=== PATIENT | female | born 1955 | race Caucasian/White ===

== ENCOUNTER → 2016-08-14 | Outpatient (CLI) | payer BC ==
[~2016-08-14] MED LIST: CALC500C70 PO; CHOL100010 PO; DENOINJ IM; DOCU-94 PO; DOCU100C31 PO; GADAVIST IV PRN; GLUC1CAP33 PO; GLYCERIN PR; MAGN250T3 PO; MULT-506 PO; OMEP20TA14 PO; ONDA4TAB46 PO; OXYC-57 PO; PROB1TAB16 PO; SENNTAB23 PO; [UNRECOGNIZED DRUG - CODE] PO
--- NOTE | 2016-08-14 14:55 | DIAGNOSTIC IMAGING REPORT ---
MRI OF THE BRAIN COMBO CLINICAL HISTORY: Lung cancer. History of brain metastases. COMPARISON STUDY: Prior MRI examinations of the brain, most recently dated 04/09/2016. TECHNIQUE: MRI of the brain was performed utilizing various T1 and T2-weighted sequences in the axial, sagittal, and coronal planes. Contrast-enhanced sequences were acquired following the administration of 9 cc of Gadavist. FINDINGS: Brain parenchyma: Again seen is left parietal encephalomalacia consistent with previous resection. There is no hemorrhage or mass effect. There is no restricted diffusion to suggest acute ischemia. No enhancing mass lesion is identified on the postcontrast images. Perdue-white matter differentiation is preserved. There is mild subcortical and periventricular microangiopathic change. No extra-axial fluid collection is seen. The cerebellar tonsils are normal in configuration. Ventricles, sulci, and cisterns: Normal in configuration. Pituitary and sella: Partially empty sella is incidentally noted. Intracranial vasculature: Normal flow voids are maintained at the skull base. Orbits: The bony orbits are grossly intact. Orbital contents are normal in appearance. Sinuses and mastoids: There are bilateral mastoid effusions. The paranasal sinuses are clear. Calvarium: There are changes from left parietal craniotomy. No destructive calvarial lesion is seen. Fatty replacement of the clivus may be treatment related. Cervical cord: Partially visualized cervical spinal cord is normal in morphology and signal intensity. IMPRESSION: 1. There is no evidence of intracranial metastatic disease in today's examination and there has been no significant change from 04/09/2016. 2. Postoperative changes in the left parietal region are similar to previous. 3. Bilateral mastoid effusions. Electronically signed by: Pranav Gaffney M.D. 08/14/2016 2:54 PM Dictated Date/Time: 08/14/2016 2:50 PM
== END | disposition home or self-care (01) ==
LOC: C.MRI 13:49
PROVIDERS: ATTEND Internal Medicine Hematology & Oncology
DX: C34.32 Malignant neoplasm of lower lobe, left bronchus or lung (principal)

== ENCOUNTER → 2016-08-19 | Outpatient (CLI) | payer BC ==
[~2016-08-19] MED LIST changes: -GADAVIST IV PRN
--- NOTE | 2016-08-19 12:12 | DIAGNOSTIC IMAGING REPORT ---
PET/CT SKULL-THIGH CLINICAL HISTORY: LUNG CA COMPARISON STUDY: 03/09/2016 FINDINGS: The patient was injected with 15.1 mCi of F 18 labeled FDG. Following the standard induction phase, PET/CT scanning was performed from the skull base the upper thigh region. Activity within neck is felt to be physiologic. Activity within the thorax is felt to be physiologic. There is elevation of the left hemidiaphragm. Postsurgical changes are present with evidence of a prior left lower lobectomy. There is left paramediastinal consolidation with air bronchograms, likely secondary to post radiation change. There are stable water attenuation hepatic lesions, consistent with cysts. There are no FDG avid hepatic masses. There is physiologic urinary tract and bowel activity. There is no pathologic jeremie activity within the abdomen or pelvis. There are few scattered sclerotic lesions, most notably within the sacrum and lower cervical spine. These remain unchanged in size. These are not FDG avid. IMPRESSION: 1. Stable findings. Presumed left lung post radiation changes 2. Stable sclerotic skeletal lesions 3. No evidence of FDG avid metastatic disease. Electronically signed by: Mathew Ward M.D. 08/19/2016 12:10 PM Dictated Date/Time: 08/19/2016 12:02 PM
== END | disposition home or self-care (01) ==
LOC: C.PET 07:55
PROVIDERS: ATTEND Family Medicine
DX: C34.32 Malignant neoplasm of lower lobe, left bronchus or lung (principal); M89.9 Disorder of bone, unspecified

== ENCOUNTER → 2016-08-29 | Outpatient (CLI) | payer BC ==
[2016-08-29 08:53] LABS: CHOLESTEROL/HDL RATIO 4.3; THYROID STIMULATING HORMONE 1.79 uIu/ml (0.300-4.500)
== END | disposition home or self-care (01) ==
LOC: C.LAB 07:20
PROVIDERS: ATTEND Family Medicine
DX: E55.9 Vitamin D deficiency, unspecified (principal); E78.2 Mixed hyperlipidemia

== ENCOUNTER → 2016-10-21 | Outpatient (CLI) | payer BC | END | disposition home or self-care (01) | LOC: C.PATHSPEC 17:20 | PROVIDERS: ATTEND Surgery | DX: K62.9 Disease of anus and rectum, unspecified (principal) ==

== ENCOUNTER → 2016-11-09 | Outpatient (CLI) | payer BC ==
[~2016-11-09] MED LIST changes: -GLUC1CAP33 PO; -MAGN250T3 PO; -OMEP20TA14 PO
== END | disposition home or self-care (01) ==
LOC: C.CPL 18:09
PROVIDERS: ATTEND Surgery
DX: K64.4 Residual hemorrhoidal skin tags (principal); K64.8 Other hemorrhoids

== ENCOUNTER 2016-11-19 07:37 | Observation (INO) | payer BC ==
[2016-11-05 15:24] VITALS: BMI 31.0
[~2016-11-19] VITALS: Ht 160 cm; Wt 81.8 kg
[2016-11-19] VITALS (11 sets, daily range): BP systolic 104–135; BP diastolic 56–78; PULSE 71–88; TEMP 36.5–36.9; O2SAT 92–99; Ht 160 cm; Wt 81.8 kg
[~2016-11-19 07:37] MED LIST changes: -DOCU-94 PO; -GLYCERIN PR; +LACTATED RINGER'S 1000ML 1,000 ML IV SCH; -OXYC-57 PO
[2016-11-19] MEDS ORDERED: GLYCERIN PR (08:34)
--- NOTE | 2016-11-19 08:36 | History & Physical Bridge Note ---
H&P Re-Evaluation Bridge Note: I have examined the patient, reviewed the History & Physical and in the interval since the performance of the History & Physical I have noted the following changes of clinical significance: No changes paperwork from office missing new consent formed signed
--- NOTE | 2016-11-19 08:45 | Discharge Instructions ---
Discharge Instructions Date of Service November 19, 2016. Visit Reason for Visit: Prolapsed Hemorrhoids Discharge Discharge Diagnosis / Problem: hemorrhoids Discharge Goals Goal(s): Decrease discomfort Activity Recommendations Activity Limitations: as noted below Shower/Bathe: tomorrow Anesthesia . Post Anesthesia Instructions: If you have had General Anesthesia or IV Sedation: * Do not drive today. * Resume driving when surgeon permits. * Do not make important decisions or sign legal documents today. * Call surgeon for: 1. Temperature elevations greater than 101 degrees F. 2. Uncontrollable pain. 3. Excessive bleeding. 4. Persistent nausea and vomiting. 5. Medication intolerance (nausea, vomiting or rash). * For nausea and vomiting use only clear liquids such as: tea, soda, bouillon until nausea subsides, then gradually increase diet as tolerated. * If you have any concerns or questions, call your surgeon's office. If physician is unavailable and it is an emergency, call 911 or go to the nearest emergency room. . Instructions / Follow-Up Instructions / Follow-Up Dr. Karimi in 1 week, call [phone] for any questions or if you need to schedule an appt Continue sitz baths 3-4 times daily Diet Recommendations Recommended Home Diet: no limitations Pending Studies Studies pending at discharge: no Medical Emergencies . Who to Call and When: Medical Emergencies: If at any time you feel your situation is an emergency, please call 911 immediately. . Non-Emergent Contact Non-Emergency issues call your: Surgeon Call Non-Emergent contact if: you have a fever, temperature is above 101.5, your pain is not controlled . . "Provider Documentation" section prepared by Michelet Burks. .
[2016-11-19] MEDS ORDERED: DOCU-94 PO (08:47)
[2016-11-19] MEDS ORDERED: OXYC-57 PO (08:47)
[2016-11-19] MEDS ORDERED: MIDAZOLAM HCL 1 MG/ML 2ML VIAL ONE (08:52)
[2016-11-19] MEDS ORDERED: GELATIN SPONGE SZ 100 ONE (08:53)
[2016-11-19] MEDS ORDERED: BUPIVACAINE/EPINEPHRINE 0.5% MPF 1:200,000 30 ML VIAL ONE (08:53)
[2016-11-19] MEDS ORDERED: FENTANYL CITRATE INJ 50 MCG/1 ML 2 ML VIAL ONE (08:53)
[2016-11-19] MEDS ORDERED: ATROPINE SULFATE 0.1 MG/ML 5ML SYR IV PRN (09:30)
[2016-11-19] MEDS ORDERED: HYDROmorphone INJ 1 MG/ML SYR IV PRN (09:30)
[2016-11-19] MEDS ORDERED: ONDANSETRON INJ 2 MG/ML 2 ML VIAL IV PRN (09:30)
[2016-11-19] MEDS ORDERED: MEPERIDINE HCL 25 MG/ML CARP IV PRN (09:30)
[2016-11-19] MEDS ORDERED: EpHEDrine SULFATE INJ 50 MG/ML AMP IV PRN (09:30)
[2016-11-19] MEDS ORDERED: FENTANYL CITRATE INJ 50 MCG/1 ML 2 ML VIAL IV PRN (09:30)
[2016-11-19] MEDS ORDERED: LABETALOL HCL IV 5 MG/ML 20ML IV PRN (09:30)
[2016-11-19] MEDS ORDERED: GLYCOPYRROLATE INJ 0.2 MG/ML VIAL ONE (09:47)
[2016-11-19] MEDS ORDERED: NEOSTIGMINE METHYLSULFATE 5 MG/5 ML SYR ONE (09:47)
[2016-11-19] MEDS ORDERED: LIDOCAINE HCL 2% 2 ML VIAL (20MG/ML) ONE (09:47)
[2016-11-19] MEDS ORDERED: DEXAMETHASONE SOD INJ 4 MG/ML VIAL ONE (09:47)
[2016-11-19] MEDS ORDERED: ROCURONIUM BROMIDE 10 MG/ML 5 ML VIAL ONE (09:47)
[2016-11-19] MEDS ORDERED: PROPOFOL IV EMULSION 10 MG/ML 20 ML VIAL IV ONE (09:47)
[2016-11-19] MEDS ORDERED: ONDANSETRON INJ 2 MG/ML 2 ML VIAL ONE (09:47)
[2016-11-19] MEDS ORDERED: PHENYLEPHRINE HCL INJ 10 MG/ML VIAL ONE (09:50)
[2016-11-19] MEDS ORDERED: CEFOXITIN SOD 1 GM VIAL ONE (09:52)
[2016-11-19] MEDS ORDERED: METOCLOPRAMIDE HCL INJ 5 MG/ML 2 ML VIAL ONE (09:54)
--- NOTE | 2016-11-19 10:11 | [facility] Post Operative Brief Note ---
Immediate Operative Summary Operative Date November 19, 2016. Pre-Operative Diagnosis Prolapsed hemorrhoid Post-Operative Diagnosis Prolapsed hemorrhoid Procedure(s) Performed Excision of 2 Point Hemorrhoids right, Exam Under Anesthesia, Rubberband Ligation Left Internal Hemmorrhoid Surgeon Dr. Lenny [facility] Coordinator Surgeon(s) Michelet Burks PA-C Estimated Blood Loss 10ml Findings prolapse ant right and and post right good sphincter tone Specimens A) right ant and post
[2016-11-19] MEDS ORDERED: MoRPHine SULFATE 2 MG/ML CARP IV PRN (10:15)
[2016-11-19] MEDS ORDERED: MEPERIDINE HCL 25 MG/ML CARP ONE (10:29)
[2016-11-19] MEDS ORDERED: LABETALOL HCL IV 5 MG/ML 20ML IV ONE (10:35)
--- NOTE | 2016-11-19 11:03 | Anesthesiology Progress Note ---
Anesthesia Post Op Note Date & Time November 19, 2016 at 11:04 Vital Signs Pain Intensity: 4 Vital Signs Past 12 Hours Date Time Temp Pulse Resp B/P Pulse Ox O2 Delivery O2 Flow Rate FiO2 11/19/16 10:57 122/ 11/19/16 10:52 85 16 11/19/16 10:52 86 16 93 11/19/16 10:51 130/75 11/19/16 10:50 80 15 93 11/19/16 10:50 80 15 11/19/16 10:46 138/60 11/19/16 10:45 81 20 11/19/16 10:45 79 20 90 11/19/16 10:43 141/68 11/19/16 10:40 87 23 94 11/19/16 10:40 87 23 11/19/16 10:36 144/99 11/19/16 10:35 85 19 11/19/16 10:35 84 19 92 11/19/16 10:34 147/92 11/19/16 10:33 88 26 11/19/16 10:33 88 26 93 11/19/16 10:32 158/107 11/19/16 10:28 86 19 11/19/16 10:28 87 19 99 11/19/16 10:27 153/98 11/19/16 10:23 77 16 11/19/16 10:23 77 16 99 11/19/16 10:22 157/92 11/19/16 10:18 82 15 98 11/19/16 10:18 82 15 11/19/16 10:17 169/96 11/19/16 10:14 158/97 11/19/16 10:13 36.2 78 16 158/97 100 Mask 10 11/19/16 10:13 77 11/19/16 10:13 77 99 11/19/16 07:53 36.7 71 20 104/56 95 Room Air Notes Mental Status: alert / awake / arousable, participated in evaluation Pt Amnestic to Procedure: Yes Nausea / Vomiting: adequately controlled Pain: adequately controlled Airway Patency, RR, SpO2: stable & adequate BP & HR: stable & adequate Hydration State: stable & adequate Anesthetic Complications: no major complications apparent
--- NOTE | 2016-11-19 11:41 | OPERATIVE REPORT ---
DATE OF OPERATION: 11/19/2016 PREOPERATIVE DIAGNOSIS: Prolapsed hemorrhoids. POSTOPERATIVE DIAGNOSES: Prolapsed hemorrhoids, right anterior and posterior group and left group. PROCEDURES: Exam under anesthesia, excision right anterior and right posterior group, rubber band ligation of the left internal hemorrhoids. SURGEON: Dr. Karimi. STANDARDS ANALYST: Rosendo Burks PA-C. OPERATION AND FINDINGS: SUMMARY: The patient was brought into the operating room theater. The area was shaved and the buttocks were spread over with adhesive tape and prepped with Betadine solution. Systemic antibiotics was given. At this point, we inspected the patient had an obvious prolapse in the right side which she had almost a chronic polyp that we had biopsied in the office, was about 2 cm at most, which showed chronic inflammation. At this point, we progressively dilated the sphincter to 2 finger, the sphincter tone was good and then placed the scope. We visualized the canal after manually palpating there were no lesions appreciated. What we could see is the right anterior group significant prolapsing with significant amount of tissue. At this point, I placed a 2-0 chromic suture above the dentate line, scored circumferentially around the tissue that we had elevated with Allis clamps all the way to the skin edges. We then dissected out the plexus to the point that we avoided sphincters. We placed a Charley clamp underneath the tissue, excised the tissue and using the same chromic we ran it backwards and forward to achieve hemostasis in the tract that we had excised. Once this had been completed, we then did similarly in the posterior group in a similar fashion. Then our attention was turned to the internal group after we felt that the sphincter and appeared to be a little bit tight at this point compared to when we first went in, therefore I rubber band ligated the hemorrhoid tissue on the left hand side which was not as prominent to grasp it with an Allis clamp and rubber band ligated above the dentate line. At this point, we placed the packing of Gelfoam wrapped in Vaseline gauze into the canal and dressing was applied. The procedure was tolerated well by the patient. Estimated blood loss approximately 15 mL. The patient was taken to recovery room in good condition. I attest to the content of the Intraoperative Record and any orders documented therein. Any exceptions are noted below. AMARILIS
[2016-11-19] MEDS: OXYCODONE/ACETAMINOPHEN 5-325 TAB PO PRN ×3 (11:42→19:09)
[2016-11-19] MEDS ORDERED: NURSING VERBAL MED ORDER ONE (12:02)
[2016-11-19] MEDS: ONDANSETRON INJ 2 MG/ML 2 ML VIAL IV PRN ×2 (12:08→17:43)
[2016-11-19] MEDS ORDERED: IV FLUIDS COMPLETED PRN ×2 (12:45→16:30)
[2016-11-19] MEDS: LACTATED RINGER'S 1000ML 1,000 ML IV SCH ×2 (13:58→19:48)
[2016-11-19] MEDS: BOOST VANILLA PO SCH ×2 (17:02)
[2016-11-20 03:25] VITALS: BP 103/65; PULSE 72; TEMP 36.4; O2SAT 92
[2016-11-20] MEDS: OXYCODONE/ACETAMINOPHEN 5-325 TAB PO PRN ×3 (03:55→13:57)
[2016-11-20] MEDS: ONDANSETRON INJ 2 MG/ML 2 ML VIAL IV PRN ×2 (03:58→10:14)
[2016-11-20] MEDS: LACTATED RINGER'S 1000ML 1,000 ML IV SCH (05:32)
[2016-11-20 07:05] VITALS: BP 104/70; PULSE 61; TEMP 36.5; O2SAT 97
--- NOTE | 2016-11-20 07:44 | SURGERY PROGRESS NOTE ---
DATE: 11/20/2016 DATE: 11/20/2016. Carmelita is resting comfortably this morning. Her pain is pretty much managed. She is alert, coherent. She has voided fine. Her last vitals showed a temperature of 36.4, pulse 72, respirations 16, blood pressure 103/65, O2 sats 95 on room air. The pathology and the operative findings were discussed with the patient. The operative area does not show any ecchymosis, minimal drainage. At this point we will start Sitz bath and the patient could probably be discharged later today. Instructions were given not to lift anything heavier than 10 pounds, maintains stools soft and she definitely needs Sitz bath about 3 or 4 times a day. We will see her back in the office next week.
--- NOTE | 2016-11-20 08:25 | Anesthesiology Progress Note ---
Anesthesia Post Op Note Date & Time November 20, 2016 at 08:25 Vital Signs Pain Intensity: 7.0 Vital Signs Past 12 Hours Date Time Temp Pulse Resp B/P Pulse Ox O2 Delivery O2 Flow Rate FiO2 11/20/16 07:05 36.5 61 16 104/70 97 Room Air 11/20/16 03:25 36.4 72 16 103/65 92 Room Air 11/19/16 23:40 Room Air 11/19/16 23:25 36.6 75 16 109/68 93 Room Air Notes Mental Status: alert / awake / arousable, participated in evaluation Pt Amnestic to Procedure: Yes Nausea / Vomiting: adequately controlled, see Notes Pain: adequately controlled Airway Patency, RR, SpO2: stable & adequate BP & HR: stable & adequate Hydration State: stable & adequate Anesthetic Complications: no major complications apparent PONV last night, emesis x 1, improved with zofran, no N/V currently.
[2016-11-20] MEDS: BOOST VANILLA PO SCH ×4 (09:25→13:57)
[2016-11-20 13:38] VITALS: BP 104/70; PULSE 61; TEMP 36.5; O2SAT 97
--- NOTE | 2016-11-21 05:55 | DISCHARGE SUMMARY ---
PRIMARY DISCHARGE DIAGNOSIS: Prolapsed hemorrhoids. SECONDARY DISCHARGE DIAGNOSIS: History of lung cancer. PROCEDURE PERFORMED: Exam under anesthesia, excision of right anterior and right posterior group and rubber band ligation of left internal hemorrhoids. HOSPITAL COURSE: The patient is a 61-year-old female brought in through same day to the operating room for hemorrhoidectomy. The procedure was well tolerated. She was transferred to the surgical floor for overnight observation given her previous medical history. She did well and was tolerating diet and oral analgesics on postoperative day 1. Packing was removed. She was started on Sitz baths. She was stable for discharge. DISCHARGE INSTRUCTIONS: Discharge home. Follow up with Dr. Karimi in 1 week. DISCHARGE MEDICATIONS: Colace 100 mg p.o. b.i.d. and Percocet 1-2 tablets every 4 hours as needed. Continue home medications including Os-Jd 2 tablets daily, vitamin D 1000 units daily, Xalkori 200 mg b.i.d. Xgeva 120 mg monthly, daily multivitamin, Zofran 4 mg as needed, daily probiotic, Sennosides 4 tablets as needed and glycerin suppository which should be held.
== END 2016-11-20 14:05 | disposition home or self-care (01) ==
LOC: ENRESERVDT → ENRESERVTM → C.ACU 07:37 → C.MSW 11:55
PROVIDERS: ADMIT Surgery; ATTEND Surgery
DX: K64.8 Other hemorrhoids (principal); H91.90 Unspecified hearing loss, unspecified ear; E78.5 Hyperlipidemia, unspecified; E55.9 Vitamin D deficiency, unspecified; Z80.0 Family history of malignant neoplasm of digestive organs; Z82.3 Family history of stroke; Z83.3 Family history of diabetes mellitus; Z82.49 Family history of ischemic heart disease and other diseases of the circulatory system; Z87.891 Personal history of nicotine dependence

== ENCOUNTER → 2017-03-25 | Outpatient (CLI) | payer BC ==
[~2017-03-25] MED LIST changes: +DOCU-94 PO; +GADAVIST IV PRN; -LACTATED RINGER'S 1000ML 1,000 ML IV SCH; +OPTIRAY 320 IV PRN; +OXYC-57 PO; -SENNTAB23 PO
--- NOTE | 2017-03-25 07:59 | DIAGNOSTIC IMAGING REPORT ---
BRAIN COMBO HISTORY: 61 years-old Female C34.32 follow-up study in a patient with history of metastatic lung cancer. History of skeletal metastases. COMPARISON: PET/CT 08/19/2016, brain MR 08/14/2016 TECHNIQUE: Multiplanar multisequence MRI of the brain was obtained both with and without the use of 8 mL Gadavist. FINDINGS: There is no restricted diffusion to suggest acute ischemia. Midline structures including the corpus callosum, brainstem, optic chiasm and pineal gland are unremarkable in the sagittal T1 sequence. No cerebellar tonsillar herniation. The sella is partially empty. Mild uncovertebral spurring is noted within the imaged upper cervical spine. Postsurgical changes from prior left parietal craniotomy are again noted with encephalomalacia and gliosis in the adjacent left parietal lobe. There is mild cerebral atrophy with scattered areas of T2/FLAIR prolongation within the subcortical and periventricular white matter of the cerebral hemispheres bilaterally suggesting chronic microvascular ischemic changes. These findings appear unchanged from comparison. There is no acute intracranial hemorrhage, midline shift, abnormal extra-axial collections, hydrocephalus or intracranial mass. No abnormal enhancement identified. The major flow voids at the skull base are patent. There are [id number] bilateral mastoid effusions. Mild ethmoid and sphenoid sinus disease. IMPRESSION: 1. No acute intracranial abnormality identified. No abnormal enhancement or focal mass lesion identified to suggest metastasis. 2. Prior left parietal craniotomy with encephalomalacia and gliosis of the left parietal lobe, unchanged. 3. Mild atrophy with background chronic microvascular ischemic changes. 4. Bilateral mastoid effusions with mild ethmoid and sphenoid sinus disease. The above report was generated using voice recognition software. It may contain grammatical, syntax or spelling errors. Electronically signed by: Rony Mcpherson M.D. 03/25/2017 7:58 AM Dictated Date/Time: 03/25/2017 7:50 AM
--- NOTE | 2017-03-25 08:31 | DIAGNOSTIC IMAGING REPORT ---
ABD/PELVIS IV AND ORAL CONT CLINICAL HISTORY: 61 years-old Female presenting with C34.32, lung cancer, brain metastases. TECHNIQUE: Multidetector CT of the abdomen and pelvis was performed after the administration of oral and intravenous contrast. IV contrast: 118 mL of Optiray 320. A dose lowering technique was used consistent with the principles of ALARA (as low as reasonably achievable). COMPARISON: 11/09/2012. CT DOSE (mGy.cm): The estimated cumulative dose is 1218.38. FINDINGS: Paint Stripper topogram: Cholecystectomy clips postsurgical changes of the left lung. Lung bases: Left hemidiaphragm elevation. Right lung bases clear. Normal heart size. No pericardial or pleural effusion. Liver: Normal morphology. Multiple well-defined hypodensities in the liver, stable to slightly increased in size from prior exam. Some of these are too small to characterize, however, most are well-defined and nonenhancing, consistent with hepatic cysts or hamartomas. No convincing evidence of a suspicious lesion. Patent hepatic vasculature. Biliary: No intrahepatic or extrahepatic biliary ductal dilatation. Gallbladder surgically absent. Pancreas: Normal. Spleen: The spleen is incompletely included within the [id number] secondary to elevation of the left hemidiaphragm. Adrenal glands: Normal. Kidneys and ureters: Few tiny hypodensities in the right kidney likely cysts. No hydronephrosis. Ureters normal. Bladder: Incompletely evaluated secondary to underdistention. Pelvic organs: Uterus and ovaries normal. Gas noted in the vagina. Bowel: Diverticulosis of the descending and sigmoid colon. Mild wall thickening in the sigmoid colon likely indicates chronic diverticular disease. No pericolonic inflammatory change. The splenic flexure is incompletely included within the [id number] secondary to elevation of the left hemidiaphragm. Normal appendix. No bowel obstruction. Peritoneal cavity: No free fluid or intraperitoneal gas. Vasculature: Aorta and IVC patent and normal in caliber. Lymph nodes: Few prominent lymph nodes in the iliac axis, which are subcentimeter in the short axis and were present on prior exam. Another prominent lymph node in the portacaval region was also present on prior exam and is subcentimeter in the short axis. No pathologically enlarged lymph nodes in the abdomen or pelvis by CT size criteria. Abdominal wall: Small fat-containing umbilical hernia. Musculoskeletal: Degenerative changes of the spine. Sclerotic lesion in the sacrum (series 6 image 288), new from prior exam additional sclerotic lesion in the left lateral 10th rib (series 6 image 81). IMPRESSION: 1. Findings suspicious for osseous metastatic disease with new sclerotic lesions in the sacrum and left lateral 10th rib. No other evidence of metastatic disease in the abdomen or pelvis. No pathologically enlarged lymph nodes. 2. Chronic diverticular disease of the sigmoid colon. Electronically signed by: Tacos Jean-Baptiste M.D. 03/25/2017 8:30 AM Dictated Date/Time: 03/25/2017 8:20 AM
--- NOTE | 2017-03-25 08:49 | DIAGNOSTIC IMAGING REPORT ---
CT OF THE CHEST WITH IV CONTRAST CLINICAL HISTORY: C34.32 LUNG CARCINOMA. BRAIN METASTASIS. COMPARISON STUDY: 04-10 TECHNIQUE: Following the IV administration of 118 mL of Optiray-320, CT of the thorax was performed from the thoracic inlet to the lung bases. Images are reviewed in the axial, sagittal, and coronal planes. IV contrast was administered without complication. A dose lowering technique was utilized adhering to the principles of ALARA. CT DOSE: 1218.38 mGycm FINDINGS: Thyroid: Imaged portions of the thyroid gland are normal in appearance. Thoracic aorta: The thoracic aorta is normal in course and caliber, noting standard 3-vessel arch anatomy. No aneurysm or dissection is seen. Pulmonary vasculature: The pulmonary trunk is normal in caliber. There are no central filling defects identified to suggest pulmonary embolus. Note that this examination was not protocoled for the evaluation of pulmonary emboli. HEART: There is trace pericardial fluid Lungs and pleural spaces: There are postsurgical changes of a left upper lobectomy. There are left paramediastinal fibrotic changes consistent with post radiation change. This remains unchanged from the preceding study. There is no acute parenchymal consolidation. There are no pleural effusions. Mediastinum: There is no mediastinal lymphadenopathy. Lila: There is no evidence of pathologic adenopathy Axilla: Clear. Upper abdomen: There are multiple hepatic hypodensities which remain similar and likely represent cysts. Skeletal structures: There is a C7 sclerotic lesion, unchanged from the PET/CT scan dated 08/19/2016 IMPRESSION: 1. Stable C7 sclerotic lesion, unchanged from the PET/CT scan dated 08/19/2016 2. No evidence of recurrent neoplasm within the chest. Electronically signed by: Mathew Ward M.D. 03/25/2017 8:47 AM Dictated Date/Time: 03/25/2017 8:31 AM
== END | disposition home or self-care (01) ==
LOC: C.CTS 06:40
PROVIDERS: ATTEND Internal Medicine Hematology & Oncology
DX: C34.32 Malignant neoplasm of lower lobe, left bronchus or lung (principal); Z98.890 Other specified postprocedural states; G31.9 Degenerative disease of nervous system, unspecified; H74.8X3 Other specified disorders of middle ear and mastoid, bilateral; J32.2 Chronic ethmoidal sinusitis; J32.3 Chronic sphenoidal sinusitis; M89.9 Disorder of bone, unspecified; K57.30 Diverticulosis of large intestine without perforation or abscess without bleeding

== ENCOUNTER → 2017-05-24 | Outpatient (CLI) | payer BC ==
[~2017-05-24] MED LIST changes: -GADAVIST IV PRN; -OPTIRAY 320 IV PRN; -OXYC-57 PO
--- NOTE | 2017-05-24 12:45 | DIAGNOSTIC IMAGING REPORT ---
PET/CT SKULL-THIGH CLINICAL HISTORY: 61 years-old Female with LUNG CANCER. Subsequent treatment strategy. Follow-up study in a patient with non-small cell lung cancer (adenocarcinoma of left lung stage III). Patient was diagnosed with lung cancer in 2012 and is currently on oral chemotherapy. COMPARISON: CT chest, abdomen and pelvis 03/25/2017. PET/CT 08/17/2016 TECHNIQUE: The patient was injected with 14.02 mCi of F-18 fluorodeoxyglucose (FDG) and an emission scan was performed from the skull vertex to the toes. Noncontrast CT was performed for attenuation correction and anatomic localization. The blood glucose level was 80 mg/dl. FINDINGS: HEAD AND NECK: There is a physiologic distribution of activity, with no hypermetabolic foci. CHEST: Postoperative changes compatible with prior left lower lobectomy. Chronic left hemidiaphragm elevation. Left perimediastinal chronic consolidation with air bronchograms and adjacent suture material is unchanged with mildly increased FDG activity suggesting postradiation fibrosis. Mildly increased FDG uptake is noted within the areas of the midthoracic esophagus suggesting physiologic changes without focal abnormality seen on the CT portion of the study. No pathologically enlarged or FDG avid adenopathy about the chest. ABDOMEN AND PELVIS: There is a physiologic distribution of activity within the liver, spleen, adrenal glands, gastrointestinal and urinary tracts, with no hypermetabolic foci. MUSCULOSKELETAL SYSTEM AND EXTREMITIES: Previously noted sclerotic lesion involving the lateral left 10th rib is again seen on image 139 series 3 and demonstrates no significant hypermetabolic activity. Previously noted sclerotic lesion involving the inferior right sacrum on image 196 series 3 also demonstrates no significant hypermetabolic activity. No FDG avid bony lesions are identified. Sclerosis of the left acetabulum and left C7 vertebral body redemonstrated which appears stable. Mildly increased FDG activity about the left infraspinatus musculature may be related to recent activity or inflammation. ADDITIONAL CT FINDINGS: Persistent moderate-sized pericardial effusion is unchanged. Low attenuating non-FDG avid lesions throughout the liver are again seen suggesting hepatic cysts. Prior cholecystectomy. No bowel obstruction. Moderate to extensive colonic diverticulosis without diverticulitis. Appendix appears normal. Diastases recti. No acute inflammatory changes of the abdomen or pelvis. IMPRESSION: 1. Findings compatible with stable disease. 2. Postoperative changes compatible with prior left lower lobectomy with areas of radiation fibrosis within the left paramediastinal region. 3. Stable sclerotic metastasis without hypermetabolic activity. 4. No hypermetabolic adenopathy identified. The above report was generated using voice recognition software. It may contain grammatical, syntax or spelling errors. Electronically signed by: Rony Mcpherson M.D. 05/24/2017 12:43 PM Dictated Date/Time: 05/24/2017 12:23 PM
== END | disposition home or self-care (01) ==
LOC: C.PET 08:39
PROVIDERS: ATTEND Nurse Practitioner Family
DX: C34.32 Malignant neoplasm of lower lobe, left bronchus or lung (principal)

== ENCOUNTER → 2017-05-26 | Outpatient (CLI) | payer BC ==
[2017-05-26 13:22] LABS: BASO % 0.2 %; BASO ABS # 0.01 K/uL (0-0.2); COMPLETE YES; EOS % 2.5 %; HEMATOCRIT 40.5 % (37-47); IG% 0.2 %; LYMPH % 31.5 %; LYMPH ABS # 1.52 K/uL (1.2-3.4); MEAN CELL VOLUME 94.6 fL (80-100); MEAN CORPUSCULAR HEMOGLOBIN 31.8 pg (25-34); MEAN CORPUSCULAR HGB CONC 33.6 g/dl (32-36); MEAN PLATELET VOLUME 10.3 fL (7.4-10.4); MONO % 17.6 %; PLATELET COUNT 221 K/uL (130-400); RED BLOOD COUNT 4.28 M/uL (4.2-5.4); WHITE BLOOD COUNT 4.83 K/uL (4.8-10.8)
[2017-05-26 13:52] LABS: ALT/SGPT 62 U/L (12-78); BLOOD UREA NITROGEN 16 mg/dl (7-18); BUN/CREATININE RATIO 19.4 (10-20); CALCIUM 8.5 mg/dl (8.5-10.1); CARBON DIOXIDE 26 mmol/L (21-32); CHLORIDE 104 mmol/L (98-107); CREATININE 0.83 mg/dl (0.60-1.20); GLUCOSE 105 mg/dl (70-99); POTASSIUM 3.9 mmol/L (3.5-5.1); SODIUM 137 mmol/L (136-145)
[2017-05-26 13:55] LABS: ALB/GLOB RATIO 0.9 (0.9-2); ALKALINE PHOSPHATASE 66 U/L (45-117); AST/SGOT 40 U/L (15-37)
== END | disposition home or self-care (01) ==
LOC: C.LAB 12:40
PROVIDERS: ATTEND Nurse Practitioner Family
DX: C34.32 Malignant neoplasm of lower lobe, left bronchus or lung (principal)

== ENCOUNTER → 2017-08-23 | Outpatient (CLI) | payer OTHER ==
[~2017-08-23] MED LIST changes: +GADAVIST IV PRN
--- NOTE | 2017-08-23 13:42 | DIAGNOSTIC IMAGING REPORT ---
BRAIN COMBO HISTORY: 62 years-old Female LUNG CA, HX BRAIN METS follow-up study in a patient with history of lung carcinoma and brain metastasis. History of prior left parietal craniotomy. COMPARISON: Brain MRI 03/25/2017, PET CT 05/24/2017 TECHNIQUE: Multiplanar multisequence MRI of the brain was obtained both with and without the use of 8 mL Gadavist FINDINGS: Large [id number] oak tanner localizer images demonstrate no gross abnormality. There is no restricted diffusion to suggest acute or subacute infarction. The midline structures including the corpus callosum, brainstem, optic chiasm, infundibulum and pineal glands appear unremarkable. The sella appears empty. Degenerative changes are noted within the imaged cervical spine. There is no acute intracranial hemorrhage, midline shift, abnormal extra axial collections or hydrocephalus. Mild brain atrophy redemonstrated with scattered multifocal areas of increased T2/FLAIR signal within the subcortical, deep and periventricular white matter compatible with chronic microvascular ischemic changes, unchanged. Encephalomalacia and gliosis again seen within the left parietal lobe with postsurgical changes compatible with prior left parietal craniotomy. There is no abnormal intra-axial or extra-axial enhancement identified. The major flow voids at the level of the skull base appear patent. Moderate bilateral mastoid effusions. Paranasal sinuses are generally clear. Orbits and soft tissues are unremarkable. IMPRESSION: 1. No acute intracranial abnormality identified. No abnormal enhancement to suggest metastatic disease. 2. Encephalomalacia and gliosis of the left parietal lobe with postsurgical changes compatible with prior left parietal craniotomy. 3. Mild atrophy with chronic microvascular ischemic changes. 4. Bilateral mastoid effusions. The above report was generated using voice recognition software. It may contain grammatical, syntax or spelling errors. Electronically signed by: Rony Mcpherson M.D. 08/23/2017 1:40 PM Dictated Date/Time: 08/23/2017 1:35 PM
== END | disposition home or self-care (01) ==
LOC: C.MRI 12:25
PROVIDERS: ATTEND Internal Medicine Hematology & Oncology
DX: C34.32 Malignant neoplasm of lower lobe, left bronchus or lung (principal); Z85.841 Personal history of malignant neoplasm of brain; Z98.890 Other specified postprocedural states; G93.89 Other specified disorders of brain; H74.8X3 Other specified disorders of middle ear and mastoid, bilateral

== ENCOUNTER → 2017-09-10 | Outpatient (CLI) | payer OTHER ==
[~2017-09-10] MED LIST changes: -GADAVIST IV PRN
--- NOTE | 2017-09-10 16:55 | DIAGNOSTIC IMAGING REPORT ---
CERVICAL WITHOUT CONTRAST HISTORY: 62 years-old Female RIGHT ARM AND LEG NUMBNESS AND PAINRIGHT ARM AND LEG NUMBNESS AN symptoms are acute in nature. History of lung carcinoma with brain metastasis COMPARISON: Brain MRI 08/23/2017, PET CT 05/24/2017, MRI cervical spine 04/11/2015 TECHNIQUE: Multiplanar multisequence MRI of the cervical spine was obtained without contrast FINDINGS: Postoperative changes of left lung redemonstrated. No acute gross abnormality identified on the large [id number] images. 7 mm T2 hyperintense structure involving the C7-T1 foramen on the left suggests perineural root sleeve cyst with additional similar-appearing 13 mm structure involving the left T4-T5 neuroforamen, also suggesting a root sleeve cyst.. Sclerotic lesion involving the left aspect of the C7 vertebral body is again noted on image 22 series 6 measuring up to 11 mm in greatest dimension, unchanged. No associated focal bone marrow edema or pathologic fracture identified. No focal bone marrow edema or fracture. The imaged posterior fossa structures appear unremarkable. Signal within the brainstem and cervical spinal cord appears within normal limits. No cord lesions identified. No adenopathy of the neck identified. Degenerative changes at C1-C2 redemonstrated. C2-C3: Mild intervertebral disc space narrowing with uncovertebral spurring and mild to moderate facet arthrosis. No central canal or foraminal narrowing. C3-C4: Mild to moderate intervertebral disc space narrowing with uncovertebral spurring and small posterior disc bulge favoring the left lateral recess and left neuroforamen. Additionally, there is mild to moderate bilateral facet arthrosis. There is flattening of the ventral thecal sac with mild bilateral foraminal stenosis. C4-C5: Mild to moderate intervertebral disc space narrowing with broad-based posterior disc osteophyte complex formation with mild to moderate facet arthrosis causing mild central canal stenosis without significant neuroforaminal narrowing. These findings have mildly progressed from comparison. C5-C6: Moderate intervertebral disc space narrowing with moderate-sized circumferential disc osteophyte complex which favors the left perimedian distribution. Additionally, there is moderate facet arthrosis. These findings cause mild central canal, mild to moderate left and moderate right foraminal narrowing. Slight progression from comparison. C6-C7: Mild to moderate intervertebral disc space narrowing with spondylitic spurring and small posterior disc bulge with mild to moderate facet arthrosis. No significant central canal or foraminal narrowing. C7-T1: 2 mm anterolisthesis C7 on T1 with moderate facet arthrosis, likely chronic in nature. Mild spondylitic spurring without significant central canal or foraminal narrowing. IMPRESSION: 1. Slight progression of discogenic degenerative changes and facet arthrosis as above, most pronounced at C5-C6 where there is mild central canal, mild to moderate left and moderate right foraminal narrowing. 2. Unchanged sclerotic lesion of the left aspect C7 vertebral body. 3. No evidence of progressive metastatic disease. The above report was generated using voice recognition software. It may contain grammatical, syntax or spelling errors. Electronically signed by: Rony Mcpherson M.D. 09/10/2017 4:54 PM Dictated Date/Time: 09/10/2017 4:40 PM
== END | disposition home or self-care (01) ==
LOC: C.MRI 15:36
PROVIDERS: ATTEND Family Medicine
DX: M79.601 Pain in right arm (principal); R20.0 Anesthesia of skin; M89.9 Disorder of bone, unspecified

== ENCOUNTER → 2017-10-29 | Outpatient (CLI) | payer OTHER ==
--- NOTE | 2017-11-01 14:34 | MAMMOGRAPHY REPORT ---
BILATERAL DIGITAL SCREENING MAMMOGRAM TOMOSYNTHESIS WITH CAD: 10/29/2017 CLINICAL HISTORY: Routine screening. Patient has no complaints. TECHNIQUE: Breast tomosynthesis in addition to standard 2D mammography was performed. Current study was also evaluated with a Computer Aided Detection (CAD) system. COMPARISON: Comparison is made to exam dated: 03/15/2013 mammogram - [facility]. BREAST COMPOSITION: The tissue of both breasts is heterogeneously dense, which may obscure small mas ses. FINDINGS: No suspicious masses, calcifications, or areas of architectural distortion are noted in ei ther breast. There has been no significant interval change compared to prior exams. Scattered bilate ral benign-appearing calcifications are again noted. IMPRESSION: ACR BI-RADS CATEGORY 2: BENIGN There is no mammographic evidence of malignancy. A 1 year screening mammogram is recommended. The pa tient will receive written notification of the results. Approximately 10% of breast cancers are not detected with mammography. A negative mammographic report should not delay biopsy if a clinically suggestive mass is present. Johnna Brady M.D. ah/:10/29/2017 15:47:40 Launching Pad Mechanic: Eva LEVINE(Earnest)(Alexa)(BD), [facility] letter sent: Normal 1/2 BI-RADS Code: ACR BI-RADS Category 2: Benign
== END | disposition home or self-care (01) ==
LOC: C.MAMM 14:51
PROVIDERS: ATTEND Family Medicine
DX: Z12.31 Encounter for screening mammogram for malignant neoplasm of breast (principal)

== ENCOUNTER → 2017-11-15 | Outpatient (CLI) | payer OTHER ==
[~2017-11-15] MED LIST changes: +OPTIRAY 320 IV PRN
--- NOTE | 2017-11-15 14:36 | DIAGNOSTIC IMAGING REPORT ---
ABD/PELVIS IV AND ORAL CONT CLINICAL HISTORY: 62 years-old Female presenting with lung carcinoma. TECHNIQUE: Multidetector CT of the abdomen and pelvis was performed after the administration of oral and intravenous contrast. IV contrast: 94 mL of Optiray 320. A dose lowering technique was used consistent with the principles of ALARA (as low as reasonably achievable). COMPARISON: 03/25/2017 and PET/CT from 05/24/2017. CT DOSE (mGy.cm): The estimated cumulative dose is 1103.94 mGy.cm. FINDINGS: Projection Technician topogram: Cholecystectomy clips. Lung bases: Postsurgical changes of the right hilum with left infrahilar consolidation and bronchiectasis similar to PET/CT from April. Normal heart size. Small pericardial effusion, unchanged. No pleural effusion. Liver: Normal morphology. Multiple hypodensities in the liver are well-defined and unchanged from prior, compatible with hepatic cysts. Patent hepatic vasculature. Biliary: Mild biliary ductal prominence likely a reservoir effect in the post cholecystectomy state. Gallbladder surgically absent. Pancreas: Normal. Spleen: Normal. Adrenal glands: Normal. Kidneys and ureters: Few subcentimeter hypodensities in the kidneys to small to characterize but likely cysts. No nephrolithiasis. No hydronephrosis. Ureters normal. Bladder: The configuration of the bladder suggests pelvic ligamentous laxity. Pelvic organs: Uterus and ovaries normal. Bowel: Diverticulosis of the proximal sigmoid and distal descending colon. At this site, there is scant pericolonic infiltration. This is not overly convincing for diverticulitis. The appendix is normal. No bowel obstruction. Peritoneal cavity: No free fluid or intraperitoneal gas. Lymph nodes: Decreased prominence of the subcentimeter diminutive nodes at the celiac axis adjacent to the left adrenal gland. No pathologically enlarged lymph nodes by CT size criteria. Vasculature: Aorta and IVC patent and normal in caliber. Abdominal wall: Normal. Musculoskeletal: Stable appearance of the 3 sclerotic lesions within the [id number]-we-mppu including the left 10th rib, inferior right sacrum, and left acetabulum. These were previously hypometabolic on PET CT from April. Bone island suggested in the right femoral neck, unchanged. IMPRESSION: 1. Stable sclerotic osseous lesions since the most recent PET/CT from April. At that time, these were hypometabolic consistent with treated lesions. No new sites of metastatic disease in abdomen or pelvis. No lymphadenopathy. 2. Diverticulosis of the distal descending and proximal sigmoid colon with developing chronic diverticular disease. No convincing evidence of acute diverticulitis. 3. Posttreatment changes at the left lung base secondary to prior left lower lobectomy and suspected post radiation change of the left infrahilar region. Electronically signed by: Tacos Jean-Baptiste M.D. 11/15/2017 2:35 PM Dictated Date/Time: 11/15/2017 2:21 PM
--- NOTE | 2017-11-15 14:40 | DIAGNOSTIC IMAGING REPORT ---
CT OF THE CHEST WITH IV CONTRAST CLINICAL HISTORY: Lung cancer. COMPARISON STUDY: Chest CT March 25, 2017 and PET/CT May 24, 2017. TECHNIQUE: Following IV administration of 94 mL of Optiray-320, helical axial images of the chest were obtained. Sagittal and coronal reconstructions were viewed as well as maximal intensity projections on an independent 3-D workstation. A dose lowering technique was utilized adhering to the principles of ALARA. FINDINGS: No enlarged axillary, mediastinal or hilar lymph nodes are present. The size of the heart is normal. There is trace pericardial fluid which has not significantly changed. There are postoperative findings consistent with a left lower lobectomy. Left paramediastinal opacity is unchanged and represents postradiation change. No pneumothorax or pleural effusion is present. There are no suspicious pulmonary nodules. The central airways are patent. Sclerotic lesions within the C7 vertebral body and left lateral ninth rib are unchanged since CT of March 17, 2017. No new osseous lesions are identified within the bony thorax. The abdomen and pelvis will be reported separately. Note is made of numerous hepatic cysts. IMPRESSION: 1. No evidence of progressive metastatic disease within the chest. No change in appearance of the chest since CT of March 25, 2017 status post left lower lobectomy. 2. Stable C7 vertebral body and left lateral ninth rib sclerotic lesions. Electronically signed by: Mason Cavazos M.D. 11/15/2017 2:39 PM Dictated Date/Time: 11/15/2017 2:22 PM
== END | disposition home or self-care (01) ==
LOC: C.CTS 13:28
PROVIDERS: ATTEND Nurse Practitioner Family
DX: C34.32 Malignant neoplasm of lower lobe, left bronchus or lung (principal); C79.31 Secondary malignant neoplasm of brain; C79.51 Secondary malignant neoplasm of bone; Z87.891 Personal history of nicotine dependence; K57.90 Diverticulosis of intestine, part unspecified, without perforation or abscess without bleeding

== ENCOUNTER 2019-11-15 20:03 | Inpatient (IN) ==
[2019-11-15 21:43] LABS: Albumin Level 3.5 gm/dl (3.4-5.0); BUN Creatinine Ratio 19.2 (10-20); Calcium 8.9 mg/dl (8.5-10.1); Creatinine Clr Calc Pharmacy 59.8 ml/min; Est GFR (African American) 76.8; Est GFR (Non-African American) 66.3; Magnesium 2.1 mg/dl (1.8-2.4); Potassium 3.6 mmol/L (3.5-5.1)
[2019-11-15 21:45] LABS: Partial Thromboplastin Time 28.5 Seconds (21.0-31.0); Prothrombin Time 10.5 Seconds (9.0-12.0)
[2019-11-15 21:46] LABS: Albumin Globulin Ratio 0.9 (0.9-2); Bilirubin,Total 0.3 mg/dl (0.2-1); Globulin 3.8 gm/dl (2.5-4.0); Total Protein 7.3 gm/dl (6.4-8.2)
[2019-11-15 22:03] LABS: Hematocrit (blood only) 42.3 % (37-47); Hemoglobin 14.5 g/dL (12.0-16.0); Mean Corpuscular Hgb Conc 34.3 g/dL (32-36); Mean Corpuscular Volume 96.1 fL (80-100); Mean Platelet Volume 10.5 fL (7.4-10.4); Platelet Count 208 K/uL (130-400); RDW Coefficient of Variation 12.8 % (11.5-14.5); RDW Standard Deviation 44.2 fL (36.4-46.3); White Blood Count 4.94 K/uL (4.8-10.8)
--- NOTE | 2019-11-15 22:39 | CT Scan Report ---
CT SCAN OF THE BRAIN WITHOUT IV CONTRAST CLINICAL HISTORY: Numbness. Aphasia. COMPARISON STUDY: CT of the brain dated 05/06/2018. MRI of the brain dated 08/17/2019. TECHNIQUE: Unenhanced axial CT scan of the brain is performed from the vertex to the skull base. A d ose lowering technique was utilized adhering to the principles of ALARA. CT DOSE: 614.27 mGy.cm FINDINGS: Brain parenchyma: Left frontoparietal encephalomalacia is unchanged. There is minimal subcortical and periventricular microangiopathic disease. There is no hemorrhage, mass effect, or evidence of acute territorial ischemia by CT criteria. Perdue-white matter differentiation is preserved. No extra-axial f luid collection is seen. Ventricles, sulci, cisterns: Normal in configuration. Intracranial vasculature: There is atherosclerotic calcification of the cavernous carotid arteries. Calvarium: There is postoperative change from left-sided craniotomy. Sinuses and mastoids: The visualized paranasal sinuses are clear. There are small mastoid effusions. Orbits: The bony orbits are grossly intact. There is evidence of previous ocular lens surgery. IMPRESSION: Chronic/postoperative changes as above with no hemorrhage, mass effect, or evidence of ac matilde territorial ischemia by CT criteria. ACT 112: Negative or not required by law. Electronically signed by: Pranav Gaffney M.D. 11/15/2019 10:38 PM
[2019-11-15 23:46] LABS: Appearance Urine Clear (Clear); Bilirubin Urine Negative (Negative); Blood Urine Negative (Negative); Color Urine Yellow; Glucose Urine UA Negative (Negative); Ketones Urine Negative (Negative); Leukocyte Esterase Urine Negative (Negative); Nitrite Urine Negative (Negative); Protein Urine Negative (Negative); Specific Gravity Urine 1.008 (1.000-1.030); Urobilinogen Urine Negative (Negative)
--- NOTE | 2019-11-16 01:17 | History & Physical Report ---
Date of Service November 16, 2019 Assessment & Plan (1) Numbness and tingling: Carmelita Fernandez is a 64y/o F w/ PMH significant for primary lung cancer with metastasis to brain s/p resection; presented to the ED following an episode of numbness and tingling in her both her hands and on her face Numbness and tingling: - ?if these symptoms are 2/2 TIA vs seizure vs pseudoseizure vs cerebral edema vs new metastatic disease - CT Head w/o contrast demonstrated chronic/postoperative changes as above with no hemorrhage, mass effect, or evidence of acute territorial ischemia by CT criteria. - MRI Brain report pending - MRI from July 2019 demonstrated no acute intracranial abnormality, postoperative changes as described above, no evidence for intracranial metastatic disease, improvement in the small bilateral mastoid effusions. - CTA Head report pending - CTA Neck report pending - EEG ordered - Neurology consulted - Hematology/oncology consulted Diet: NPO w/ sips and chips DVT ppx: deferred at this time Code Status: Full code (2) Left parietal lobe lesion: (3) Non-small cell carcinoma of lung, stage 3: History of Present Illness Primary Care Provider: Martínez Edgar MD Carmelita Fernandez is a 64y/o F w/ PMH significant for primary lung cancer with metastasis to brain s/p resection; presented to the ED following an episode of numbness and tingling in her both her hands and on her face. This has happened twice over the last two days, with her feeling increased fatigue, decreased memory of the events, and trouble finding words, was witnessed by who to ld her to go to bed, and when she woke up several hours later she said she felt better; however, after this recurred Wednesday night they were uncomfortable with this change. She does have some baseline numbness and tingling in her right arm and leg that as been present since the resection of the metastatic tumor in 2014, and has since that time had difficulty with word finding; however, she has never previously had the numbness or tingling in her face, and the difficulty with word finding was more significant according to her spouse. has noticed that since her surgery in 2014, she will sporadically get suddenly quiet for periods of 15-30 seconds, and then for several minutes afterward she will be more confused before returning to her normal self. No recent falls, no changes in strength or function of arms/legs. No facial droop. No seizure-like activity. Allergies Allergy/AdvReac Type Severity Reaction Status Date / Time No Known Allergies Allergy Verified 11/15/19 23:27 Home Medications Home Medications Medication Instructions Recorded Confirmed Type calcium carbonate-vitamin D3 2 tab PO QPM 05/06/18 11/15/19 History [Calcium 500 With D] cholecalciferol (vitamin D3) 1,000 unit PO QPM 05/06/18 11/15/19 History [Vitamin D3] crizotinib 250 mg PO BID 05/06/18 11/15/19 History multivitamin 1 tab PO PM 05/06/18 11/15/19 History ondansetron HCl [Zofran] 4 mg PO BID 05/06/18 11/15/19 History Gaviscon 1 tab PO DIRECTED PRN 03/29/19 11/15/19 History acetaminophen 325 mg PO Q6H PRN 03/29/19 11/15/19 History docusate sodium [Stool Softener] 100 mg PO HS PRN 03/29/19 11/15/19 History ibuprofen 200 mg PO Q6H PRN 03/29/19 11/15/19 History echinacea 0 mg PO DAILY 11/15/19 11/15/19 History zinc 50 mg PO DAILY 11/15/19 11/15/19 History aspirin [Aspir-81] 81 mg PO DAILY #30 tab 11/16/19 Rx lamotrigine [Lamictal] See Rx Instructions .ROUTE 11/16/19 Rx .COMPLEX #42 tab Past Med/Surg History Medical History Depression NO MEDS Heartburn Left parietal lobe lesion (Resolved 07/26/14) "Status post abnormal MRI Status post craniotomy 07/26/2014 Status post completion of radiation therapy to the whole brain 09/03/2014 received 3750 cGy" Migraine OCCASIONAL Non-small cell carcinoma of left lung, stage 3 (Acute) FOLLOWS [facility]. DR. GRAVES- CHEMO COMPLETED- NO PORTS -ON MED Surgical History History of cholecystectomy History of colonoscopy History of craniotomy JUN 2014 - [facility] History of lobectomy of lung LLL WITH LYMPH NODE REMOVAL Hx of cataract extraction BILAT Hx of eye surgery LEFT S/P hemorrhoidectomy Family History Sister Colon cancer Brother Diabetes Social History Preferred Language: Indian Communication Ability: Effective Cloth Examiner Required: No Beliefs That Will Affect Care: None Current Living Situation: Spouse Feels Safe at Home: Yes Smoking Status: Never smoker Second Hand Exposure: Yes ( SMOKES OUTSIDE) ; Hx Alcohol Use: No Hx Substance Use: No Review of Systems Review of Systems: All systems reviewed & are unremarkable except as noted in HPI & below Physical Exam Constitutional: WD/WN, vitals as above Eyes: PERRL, conjunctivae normal, anicteric sclerae ENMT: external ear and nose normal, oropharynx normal Neck: normal visual inspection Respiratory: normal respiratory effort, lungs clear to auscultation Cardiovascular: Rate/Rhythm: regular rate and regular rhythm Heart Sounds: normal S1 and normal S2; no gallop, no murmur and no cardiac rub Vessels: no JVD Extremities: no edema Gastrointestinal (Abdomen): normal bowel sounds, soft, nontender, no he patosplenomegaly Musculoskeletal: no cyanosis or clubbing, extremities motor strength 5/5 Skin: no rashes, warm and dry Neurologic: patellar DTR's 2+ bilat, sensation intact CN's II-XI intact bilaterally and moves all extremities Psychiatric: A+Ox3, euthymic affect Lymphatic: no cervical or axillary lymphadenopathy Results & Data Results & Data ([facility]) Vital Signs (Past 12 Hours) Vital Signs Temp Pulse Pulse Resp BP BP Pulse Ox 11/16/19 00:54 66 18 156/71 H 97 11/15/19 22:51 67 18 96 11/15/19 22:49 65 17 146/63 H 96 11/15/19 22:20 65 17 96 11/15/19 22:10 71 16 97 11/15/19 22:01 72 16 127/65 11/15/19 22:00 69 21 98 11/15/19 21:50 73 18 98 11/15/19 21:46 69 22 97 11/15/19 21:30 65 18 136/72 96 11/15/19 21:21 67 16 95 11/15/19 21:18 72 15 124/87 95 11/15/19 20:05 36.3 C L 75 18 161/95 H 98 Laboratory Results 11/15/19 11/15/19 11/15/19 Range/Units 23:35 21:18 21:18 WBC (4.8-10.8) K/uL RBC (4.2-5.4) M/uL Hgb (12.0-16.0) g/dL Hct (37-47) % MCV (80-100) fL MCH (25-34) pg MCHC (32-36) g/dL RDW Std Deviation (36.4-46.3) fL RDW Coeff of Jose (11.5-14.5) % Plt Count (130-400) K/uL MPV (7.4-10.4) fL PT 10.5 (9.0-12.0) Seconds INR 1.0 (0.9-1.1) APTT 28.5 (21.0-31.0) Seconds PTT Ratio 1.0 Sodium 135 L (136-145) mmol/L Potassium 3.6 (3.5-5.1) mmol/L Chloride 100 (98-107) mmol/L Carbon Dioxide 27 (21-32) mmol/L Anion Gap 8.0 (3-11) BUN 18 (7-18) mg/dl Creatinine 0.92 (0.6-1.2) mg/dl Est Cr Clr Drug Dosing 59.8 ml/min Est GFR ( Amer) 76.8 Est GFR (Non-Af Amer) 66.3 BUN/Creatinine Ratio 19.2 (10-20) Glucose 95 (70-99) mg/dl POC Glucose (70-99) mg/dl Calcium 8.9 (8.5-10.1) mg/dl Magnesium 2.1 (1.8-2.4) mg/dl Total Bilirubin 0.3 (0.2-1) mg/dl AST 54 H (15-37) U/L ALT 69 (12-78) U/L Alkaline Phosphatase 71 (45-117) U/L Total Protein 7.3 (6.4-8.2) gm/dl Albumin 3.5 (3.4-5.0) gm/dl Globulin 3.8 (2.5-4.0) gm/dl Albumin/Globulin Ratio 0.9 (0.9-2) Urine Color Yellow Urine Appearance Clear (Clear) Urine pH 8.0 H (4.5-7.5) Ur Specific [place] 1.008 (1.000-1.030) Urine Protein Negative (Negative) Urine Glucose (UA) Negative (Negative) Urine Ketones Negative (Negative) Urine Blood Negative (Negative) Urine Nitrite Negative (Negative) Urine Bilirubin Negative (Negative) Urine Urobilinogen Negative (Negative) Ur Leukocyte Esterase Negative (Negative) 11/15/19 11/15/19 Range/Units 21:18 21:12 WBC 4.94 (4.8-10.8) K/uL RBC 4.40 (4.2-5.4) M/uL Hgb 14.5 (12.0-16.0) g/dL Hct 42.3 (37-47) % MCV 96.1 (80-100) fL MCH 33.0 (25-34) pg MCHC 34.3 (32-36) g/dL RDW Std Deviation 44.2 (36.4-46.3) fL RDW Coeff of Jose 12.8 (11.5-14.5) % Plt Count 208 (130-400) K/uL MPV 10.5 H (7.4-10.4) fL PT (9.0-12.0) Seconds INR (0.9-1.1) APTT (21.0-31.0) Seconds PTT Ratio Sodium (136-145) mmol/L Potassium (3.5-5.1) mmol/L Chloride (98-107) mmol/L Carbon Dioxide (21-32) mmol/L Anion Gap (3-11) BUN (7-18) mg/dl Creatinine (0.6-1.2) mg/dl Est Cr Clr Drug Dosing ml/min Est GFR ( Amer) Est GFR (Non-Af Amer) BUN/Creatinine Ratio (10-20) Glucose (70-99) mg/dl POC Glucose 133 H (70-99) mg/dl Calcium (8.5-10.1) mg/dl Magnesium (1.8-2.4) mg/dl Total Bilirubin (0.2-1) mg/dl AST (15-37) U/L ALT (12-78) U/L Alkaline Phosphatase (45-117) U/L Total Protein (6.4-8.2) gm/dl Albumin (3.4-5.0) gm/dl Globulin (2.5-4.0) gm/dl Albumin/Globulin Ratio (0.9-2) Urine Color Urine Appearance (Clear) Urine pH (4.5-7.5) Ur Specific [place] (1.000-1.030) Urine Protein (Negative) Urine Glucose (UA) (Negative) Urine Ketones (Negative) Urine Blood (Negative) Urine Nitrite (Negative) Urine Bilirubin (Negative) Urine Urobilinogen (Negative) Ur Leukocyte Esterase (Negative) Medications Administered Current Inpatient Medications Acetaminophen (Tylenol) 325 mg PO Q6H PRN PRN Reason: Pain Stop: 12/16/19 03:40 Al Hydrox/Mg Hydrox/Simethicone (Maalox) 30 ml PO Q6H PRN PRN Reason: Dyspepsia Stop: 12/16/19 03:40 Docusate Sodium (Colace) 100 mg PO HS PRN PRN Reason: Constipation Stop: 12/16/19 03:40 Gadobutrol (Gadavist 65ml) 7.2 ml IV ONCE PRN PRN Reason: Interaction Checking Stop: 11/20/19 03:17 Last Admin: 11/16/19 02:49 Dose: 7.2 ml Documented by: Ioversol (Optiray 320 125ml) 125 ml IV ONCE PRN PRN Reason: Interaction Checking Stop: 11/20/19 01:54 Last Admin: 11/16/19 01:56 Dose: 119 ml Documented by: Magnesium Hydroxide (Milk Of Magnesia) 30 ml PO Q6H PRN PRN Reason: Constipation Stop: 12/16/19 03:40 Miscellaneous (Order Awaiting Action) 1 ea N/A QS SONA Stop: 12/16/19 07:59 Ondansetron HCl (Zofran) 4 mg IV Q6H PRN PRN Reason: Nausea Stop: 12/16/19 03:40 Polyethylene Glycol (Miralax Powder Packet) 17 gm PO DAILY PRN PRN Reason: Constipation Stop: 12/16/19 03:40 Supervising Physician Co-Signing Physician Notes Attending addendum: I have physically seen this patient, have supervised the medical residents activities, and agree with the H&P unless as otherwise noted. Assessment and Plan: TIA like symptoms- CT of brain without contrast without acute findings. Have ordered MRI brain with and without contrast due to concerns regarding potential new metastases from lungs to brain. If evidence of vasogenic edema, patient will need IV Decadron. We will act appropriately for any abnormal findings on MRI. Follow-up on CTA head neck. Order EEG to assess for possible seizure//subclinical seizure activity. Consult neurology. Consult heme-onc. Remainder of orders and notations as noted. Resident Activity Tracking Resident Involvement: Resident Care Provided Care Provided: Adult [facility] Medicine
--- NOTE | 2019-11-16 01:41 | Emergency Department Note ---
History of Present Illness General Chief complaint: Stroke/CVA Symptoms Stated complaint: SLURRED SPEECH NUMBNESS RIGHT SIDE Time Seen by Provider: 11/15/19 21:36 Source: patient Mode of arrival: ambulatory Limitations: no limitations History of Present Illness This patient is a 64-year-old female who presents to the emergency department f or evaluation of strokelike symptoms which occurred approximately 3 hours ago and have resolved. Patient states that she was cooking dinner and went to grab a glass of water, however she developed numbness in both of her hands and dropped the glass. She states that she had numbness in both of her hands and her face and was unable to speak. She states that she was trying to speak but was unable to get any of the words out. She states the symptoms lasted about 30 minutes and resolved. She reports some tingling in her hands at this time but denies any difficulty with speech. She states she had a similar episode a few days ago which also resolved. 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 She has some baseline aphasia due to this and her reports she is currently at her baseline. She denies any headaches, neck pain, weakness, or vision changes. She denies any recent fevers or flulike symptoms. Home Medications Home Medications Medication Instructions Recorded Confirmed Type calcium carbonate-vitamin D3 2 tab PO QPM 05/06/18 11/15/19 History [Calcium 500 With D] cholecalciferol (vitamin D3) 1,000 unit PO QPM 05/06/18 11/15/19 History [Vitamin D3] crizotinib 250 mg PO BID 05/06/18 11/15/19 History multivitamin 1 tab PO PM 05/06/18 11/15/19 History ondansetron HCl [Zofran] 4 mg PO BID 05/06/18 11/15/19 History Gaviscon 1 tab PO DIRECTED PRN 03/29/19 11/15/19 History acetaminophen 325 mg PO Q6H PRN 03/29/19 11/15/19 History docusate sodium [Stool Softener] 100 mg PO HS PRN 03/29/19 11/15/19 History ibuprofen 200 mg PO Q6H PRN 03/29/19 11/15/19 History echinacea 0 mg PO DAILY 11/15/19 11/15/19 History zinc 50 mg PO DAILY 11/15/19 11/15/19 History Allergies Allergy/AdvReac Type Severity Reaction Status Date / Time No Known Allergies Allergy Verified 11/15/19 23:27 Past Med/Surg History Medical History Depression NO MEDS Heartburn Left parietal lobe lesion (Resolved 07/26/14) "Status post abnormal MRI Status post craniotomy 07/26/2014 Status post completion of radiation therapy to the whole brain 09/03/2014 received 3750 cGy" Migraine OCCASIONAL Non-small cell carcinoma of left lung, stage 3 (Acute) FOLLOWS [facility]. DR. GRAVES- CHEMO COMPLETED- NO PORTS -ON MED Surgical History History of cholecystectomy History of colonoscopy History of craniotomy JUN 2014 - [facility] DR. GONZALEZ History of lobectomy of lung LLL WITH LYMPH NODE REMOVAL Hx of cataract extraction BILAT Hx of eye surgery LEFT S/P hemorrhoidectomy Social History Preferred Language: Citizen Of [place] Communication Ability: [employer] Required: No Beliefs That Will Affect Care: None Current Living Situation: Spouse Feels Safe at Home: Yes Smoking Status: Never smoker Second Hand Exposure: Yes ( SMOKES OUTSIDE) ; Hx Alcohol Use: No Hx Substance Use: No Review of Systems A total of 10 systems reviewed and were otherwise negative Physical Exam Vital Signs Vital Signs - 24 hr 11/15/19 20:05 11/15/19 21:18 11/15/19 21:21 Temperature 36.3 C L Temperature Source Oral Pulse Rate 75 72 67 Pulse Rate [Apical] Pulse Rate from SpO2 Sensor 71 68 Respiratory Rate 18 15 16 Respiratory Effort / Characteristics Non-Labored Spontaneous Respiratory Depth Normal Blood Pressure 161/95 H 124/87 Blood Pressure [Left Arm] Blood Pressure Mean 117 96 Blood Pressure Mean [Left Arm] Pulse Oximetry 98 95 95 Oxygen Delivery Method Room Air Sepsis Recent Fever Within 48 Hours No Sepsis Action Taken by Nursing No Action Required 11/15/19 21:30 11/15/19 21:46 11/15/19 21:50 Temperature Temperature Source Pulse Rate 65 69 73 Pulse Rate [Apical] Pulse Rate from SpO2 Sensor 65 70 73 Respiratory Rate 18 22 18 Respiratory Effort / Characteristics Respiratory Depth Blood Pressure 136/72 Blood Pressure [Left Arm] Blood Pressure Mean 96 Blood Pressure Mean [Left Arm] Pulse Oximetry 96 97 98 Oxygen Delivery Method Room Air Sepsis Recent Fever Within 48 Hours Sepsis Action Taken by Nursing 11/15/19 22:00 11/15/19 22:01 11/15/19 22:10 Temperature Temperature Source Pulse Rate 69 72 71 Pulse Rate [Apical] Pulse Rate from SpO2 Sensor 71 71 Respiratory Rate 21 16 16 Respiratory Effort / Characteristics Respiratory Depth Blood Pressure 127/65 Blood Pressure [Left Arm] Blood Pressure Mean 97 Blood Pressure Mean [Left Arm] Pulse Oximetry 98 97 Oxygen Delivery Method Sepsis Recent Fever Within 48 Hours Sepsis Action Taken by Nursing 11/15/19 22:20 11/15/19 22:49 11/15/19 22:51 Temperature Temperature Source Pulse Rate 65 65 67 Pulse Rate [Apical] Pulse Rate from SpO2 Sensor 66 68 68 Respiratory Rate 17 17 18 Respiratory Effort / Characteristics Respiratory Depth Blood Pressure 146/63 H Blood Pressure [Left Arm] Blood Pressure Mean 88 Blood Pressure Mean [Left Arm] Pulse Oximetry 96 96 96 Oxygen Delivery Method Sepsis Recent Fever Within 48 Hours Sepsis Action Taken by Nursing 11/16/19 00:54 Temperature Temperature Source Pulse Rate Pulse Rate [Apical] 66 Pulse Rate from SpO2 Sensor Respiratory Rate 18 Respiratory Effort / Characteristics Non-Labored Spontaneous Respiratory Depth Normal Blood Pressure Blood Pressure [Left Arm] 156/71 H Blood Pressure Mean Blood Pressure Mean [Left Arm] 99 Pulse Oximetry 97 Oxygen Delivery Method Room Air Sepsis Recent Fever Within 48 Hours Sepsis Action Taken by Nursing VITALS: Vitals are noted on the nurse's note and reviewed by myself. GENERAL: This is a 64-year-old female, in no acute distress, well-developed well-nourished. SKIN: The skin was without rashes. HEAD: Normocephalic atraumatic. EARS: Bilateral hearing aids in place. EYES: Pupils equal round and reactive to light and accommodation. Extraocular movements intact. NOSE: Patent, turbinates without inflammation or discharge. No sinus ten derness. MOUTH: Mucous membranes moist. Tonsils are not enlarged. Pharynx without erythema or exudate. NECK: Supple without nuchal rigidity. No lymphadenopathy. HEART: Regular rate and rhythm without murmurs gallops or rubs. LUNGS: Clear to auscultation bilaterally without wheezes, rales or rhonchi. No retractions or accessory muscle use. ABDOMEN: Positive bowel sounds x 4. Soft, nontender to palpation. MUSCULOSKELETAL: Full range of motion throughout. Strength 5/5 throughout. EXTREMITIES: No pitting edema of the lower extremities. NEURO: Patient was alert and oriented to person place and time. She is somewhat slow to speak. No focal neurological deficits. Course Consultations Consultation #1: Dr. Amanda [facility] hospitalist Administered Medications Gadobutrol (Gadavist 65ml) 7.2 ml IV ONCE PRN PRN Reason: Interaction Checking Stop: 11/20/19 03:17 Last Admin: 11/16/19 02:49 Dose: 7.2 ml Documented by: [id number] Ioversol (Optiray 320 125ml) 125 ml IV ONCE PRN PRN Reason: Interaction Checking Stop: 11/20/19 01:54 Last Admin: 11/16/19 01:56 Dose: 119 ml Documented by: [id number] Medical Decision Making Differential Diagnosis Differential diagnosis includes infection, dehydration, metabolic abnormality, h ypo/hyperglycemia, electrolyte disturbance, anemia, hypoxia, cardiac sources, intracerebral event, toxicologic, neurologic, as well as other pathologies. Medical Records Attestation: I reviewed the patient's medical records. Home Medications Current Medication List: was personally reviewed by me Laboratory Data Attestation: I reviewed the patient's lab results. Result diagrams: 11/15/19 21:18 11/15/19 21:18 Lab Results 11/15/19 11/15/19 11/15/19 Range/Units 21:12 21:18 21:18 WBC 4.94 (4.8-10.8) K/uL RBC 4.40 (4.2-5.4) M/uL Hgb 14.5 (12.0-16.0) g/dL Hct 42.3 (37-47) % MCV 96.1 (80-100) fL MCH 33.0 (25-34) pg MCHC 34.3 (32-36) g/dL RDW Std Deviation 44.2 (36.4-46.3) fL RDW Coeff of Jose 12.8 (11.5-14.5) % Plt Count 208 (130-400) K/uL MPV 10.5 H (7.4-10.4) fL PT 10.5 (9.0-12.0) Seconds INR 1.0 (0.9-1.1) APTT 28.5 (21.0-31.0) Seconds PTT Ratio 1.0 Sodium (136-145) mmol/L Potassium (3.5-5.1) mmol/L Chloride (98-107) mmol/L Carbon Dioxide (21-32) mmol/L Anion Gap (3-11) BUN (7-18) mg/dl Creatinine (0.6-1.2) mg/dl Est Cr Clr Drug Dosing ml/min Est GFR ( Amer) Est GFR (Non-Af Amer) BUN/Creatinine Ratio (10-20) Glucose (70-99) mg/dl POC Glucose 133 H (70-99) mg/dl Calcium (8.5-10.1) mg/dl Magnesium (1.8-2.4) mg/dl Total Bilirubin (0.2-1) mg/dl AST (15-37) U/L ALT (12-78) U/L Alkaline Phosphatase (45-117) U/L Total Protein (6.4-8.2) gm/dl Albumin (3.4-5.0) gm/dl Globulin (2.5-4.0) gm/dl Albumin/Globulin Ratio (0.9-2) Urine Color Urine Appearance (Clear) Urine pH (4.5-7.5) Ur Specific [place] (1.000-1.030) Urine Protein (Negative) Urine Glucose (UA) (Negative) Urine Ketones (Negative) Urine Blood (Negative) Urine Nitrite (Negative) Urine Bilirubin (Negative) Urine Urobilinogen (Negative) Ur Leukocyte Esterase (Negative) 11/15/19 11/15/19 Range/Units 21:18 23:35 WBC (4.8-10.8) K/uL RBC (4.2-5.4) M/uL Hgb (12.0-16.0) g/dL Hct (37-47) % MCV (80-100) fL MCH (25-34) pg MCHC (32-36) g/dL RDW Std Deviation (36.4-46.3) fL RDW Coeff of Jose (11.5-14.5) % Plt Count (130-400) K/uL MPV (7.4-10.4) fL PT (9.0-12.0) Seconds INR (0.9-1.1) APTT (21.0-31.0) Seconds PTT Ratio Sodium 135 L (136-145) mmol/L Potassium 3.6 (3.5-5.1) mmol/L Chloride 100 (98-107) mmol/L Carbon Dioxide 27 (21-32) mmol/L Anion Gap 8.0 (3-11) BUN 18 (7-18) mg/dl Creatinine 0.92 (0.6-1.2) mg/dl Est Cr Clr Drug Dosing 59.8 ml/min Est GFR ( Amer) 76.8 Est GFR (Non-Af Amer) 66.3 BUN/Creatinine Ratio 19.2 (10-20) Glucose 95 (70-99) mg/dl POC Glucose (70-99) mg/dl Calcium 8.9 (8.5-10.1) mg/dl Magnesium 2.1 (1.8-2.4) mg/dl Total Bilirubin 0.3 (0.2-1) mg/dl AST 54 H (15-37) U/L ALT 69 (12-78) U/L Alkaline Phosphatase 71 (45-117) U/L Total Protein 7.3 (6.4-8.2) gm/dl Albumin 3.5 (3.4-5.0) gm/dl Globulin 3.8 (2.5-4.0) gm/dl Albumin/Globulin Ratio 0.9 (0.9-2) Urine Color Yellow Urine Appearance Clear (Clear) Urine pH 8.0 H (4.5-7.5) Ur Specific [place] 1.008 (1.000-1.030) Urine Protein Negative (Negative) Urine Glucose (UA) Negative (Negative) Urine Ketones Negative (Negative) Urine Blood Negative (Negative) Urine Nitrite Negative (Negative) Urine Bilirubin Negative (Negative) Urine Urobilinogen Negative (Negative) Ur Leukocyte Esterase Negative (Negative) Imaging Data Attestation: I personally reviewed and interpreted this imaging study as follows: Radiologist's Impression: CT SCAN OF THE BRAIN WITHOUT IV CONTRAST CLINICAL HISTORY: Numbness. Aphasia. COMPARISON STUDY: CT of the brain dated 05/06/2018. MRI of the brain dated 08/17/2019. TECHNIQUE: Unenhanced axial CT scan of the brain is performed from the vertex to the skull base. A dose lowering technique was utilized adhering to the princi ples of JEANINE. CT DOSE: 614.27 mGy.cm FINDINGS: Brain parenchyma: Left frontoparietal encephalomalacia is unchanged. There is minimal subcortical and periventricular microangiopathic disease. There is no hemorrhage, mass effect, or evidence of acute territorial ischemia by CT criteria. Perdue-white matter differentiation is preserved. No extra-axial fluid collection is seen. Ventricles, sulci, cisterns: Normal in configuration. Intracranial vasculature: There is atherosclerotic calcification of the cavernous carotid arteries. Calvarium: There is postoperative change from left-sided craniotomy. Sinuses and mastoids: The visualized paranasal sinuses are clear. There are small mastoid effusions. Orbits: The bony orbits are grossly intact. There is evidence of previous ocular lens surgery. IMPRESSION: Chronic/postoperative changes as above with no hemorrhage, mass effect, or evidence of acute territorial ischemia by CT criteria. Blood Pressure Blood Pressure Findings: Elevated blood pressure Blood Pressure Disposition: further management by hospitalist GYPSY Fortune The patient is a 64-year-old female who presents today complaining of an episode of numbness and aphasia which has resolved. Patient had a similar episode a few days ago. She is at her baseline here and has no complaints at this time. Labs revealed no leukocytosis, anemia or concerning electrolyte abnormalities. Urinalysis was not suggestive of infection. Patient is not hypoglycemic. A CT of the head was performed and was unremarkable. Patient will need further inpatient work-up due to suspected TIA. She was agreeable with the plan of care. The case was discussed with the [facility] hospitalist, who agreed to evaluate the patient for further care. Impression & Plan Numbness and tingling of both upper extremities, Aphasia Discharge Plan Visit Data *Final* Discharge Date/Time: 11/16/19 01:59 Chief Complaint: Stroke/CVA Symptoms Stated Complaint: SLURRED SPEECH NUMBNESS RIGHT SIDE ED Provider: Morgan Ribera ED Midlevel Provider: Jessi Muro Discharge Problem: Numbness and tingling of both upper extremities, Aphasia Patient Disposition: Admitted As Inpatient Discharge Instructions Interventions: ED Discharge Assessment Last Done: 11/16/19 01:59
[2019-11-16] MEDS ORDERED: OPTIRAY 320 125ml IV PRN (01:55)
[2019-11-16] MEDS ORDERED: GADOBUTROL 65ML VIAL IV PRN (03:18)
[2019-11-16] MEDS ORDERED: ALUMINUM/MAGNESIUM SUSP 30 ML UDC PO PRN (03:41)
[2019-11-16] MEDS ORDERED: ACETAMINOPHEN 325 MG TAB PO PRN (03:41)
[2019-11-16] MEDS ORDERED: MAGNESIUM HYDROXIDE SUSP 30 ML UDC PO PRN (03:41)
[2019-11-16] MEDS ORDERED: POLYETHYLENE (MIRALAX) 17 GM PACK PO PRN (03:41)
[2019-11-16] MEDS ORDERED: DOCUSATE SODIUM 100 MG CAP PO PRN (03:41)
[2019-11-16] MEDS ORDERED: ONDANSETRON INJ 2 MG/ML 2 ML VIAL IV PRN (03:41)
--- NOTE | 2019-11-16 07:14 | CT Scan Report ---
HEAD & NECK CTA HISTORY: Facial and hand numbness. stroke-like symptoms TECHNIQUE: Multiaxial CT images of the head were performed following the intravenous administration o f contrast to evaluate the major cerebral vessels. Multiaxial CT images of the neck were also perform ed following the intravenous administration of contrast to evaluate the major cervical vessels. Maxim um intensity projection images were also obtained. A dose lowering technique was utilized adhering to the principles of ALARA. COMPARISON: Head CT 11/15/2019. FINDINGS: There is no mass, hematoma, midline shift, or acute infarct. Visualized intracranial internal carotid arteries, distal vertebral arteries, and basilar artery are widely patent. There is no significant s tenosis, occlusion, or aneurysm seen within the bilateral ACAs, MCAs, or software test and validation engineer. Prior left parietal cr aniotomy with underlying resection cavity is again noted. The aortic arch and proximal great vessels are widely patent. There is no significant stenosis, occ lusion, or dissection identified within the bilateral common carotid, internal carotid, or vertebral arteries. Incompletely visualized density at the left hilum and postsurgical changes. Mosaic attenuat ion at the lung apices. Degenerative changes of the cervical spine. Osteoblastic metastatic focus wit hin the left side of C7, unchanged. IMPRESSION: 1. No significant stenosis, occlusion, or aneurysm within the [place]. 2. No significant stenosis, occlusion, or dissection identified within the carotid or vertebral arter ies. 3. No change in the osteoblastic metastatic focus along the left side of the C7 vertebral body. ACT 112: Negative or not required by law. Electronically signed by: Rodri Friedman M.D. 11/16/2019 7:13 AM
--- NOTE | 2019-11-16 07:14 | CT Scan Report ---
HEAD & NECK CTA HISTORY: Facial and hand numbness. stroke-like symptoms TECHNIQUE: Multiaxial CT images of the head were performed following the intravenous administration o f contrast to evaluate the major cerebral vessels. Multiaxial CT images of the neck were also perform ed following the intravenous administration of contrast to evaluate the major cervical vessels. Maxim um intensity projection images were also obtained. A dose lowering technique was utilized adhering to the principles of ALARA. COMPARISON: Head CT 11/15/2019. FINDINGS: There is no mass, hematoma, midline shift, or acute infarct. Visualized intracranial internal carotid arteries, distal vertebral arteries, and basilar artery are widely patent. There is no significant s tenosis, occlusion, or aneurysm seen within the bilateral ACAs, MCAs, or parquet floor layer. Prior left parietal cr aniotomy with underlying resection cavity is again noted. The aortic arch and proximal great vessels are widely patent. There is no significant stenosis, occ lusion, or dissection identified within the bilateral common carotid, internal carotid, or vertebral arteries. Incompletely visualized density at the left hilum and postsurgical changes. Mosaic attenuat ion at the lung apices. Degenerative changes of the cervical spine. Osteoblastic metastatic focus wit hin the left side of C7, unchanged. IMPRESSION: 1. No significant stenosis, occlusion, or aneurysm within the [place]. 2. No significant stenosis, occlusion, or dissection identified within the carotid or vertebral arter ies. 3. No change in the osteoblastic metastatic focus along the left side of the C7 vertebral body. ACT 112: Negative or not required by law. Electronically signed by: Rodri Friedman M.D. 11/16/2019 7:13 AM
[2019-11-16 07:24] LABS: Basophils # (auto) 0.03 K/uL (0-0.2); Basophils % (auto) 0.8 %; Eosinophils # (auto) 0.08 K/uL (0-0.5); Eosinophils % (auto) 2.2 %; Hematocrit (blood only) 40.2 % (37-47); Hemoglobin 13.5 g/dL (12.0-16.0); Immature Granulocytes # (auto) 0.01 K/uL (0.00-0.02); Immature Granulocytes % (auto) 0.3 %; Lymphocytes # (auto) 1.19 K/uL (1.2-3.4); Lymphocytes % (auto) 32.1 %; Mean Corpuscular Hemoglobin 32.2 pg (25-34); Mean Corpuscular Hgb Conc 33.6 g/dL (32-36); Mean Corpuscular Volume 95.9 fL (80-100); Mean Platelet Volume 10.2 fL (7.4-10.4); Monocytes % (auto) 16.2 %; Neutrophils % (auto) 48.4 %; Platelet Count 182 K/uL (130-400); Red Blood Count 4.19 M/uL (4.2-5.4); White Blood Count 3.71 K/uL (4.8-10.8)
--- NOTE | 2019-11-16 07:31 | Magnetic Resonance Report ---
MRI OF THE BRAIN WITHOUT AND WITH IV CONTRAST CLINICAL HISTORY: stroke-like symptoms, h/o metastatic cancer COMPARISON STUDY: Head CT November 15, 2019. CT of the head November 16, 2019. MRI of the brain August 17. TECHNIQUE: Utilizing a 1.5 Thea magnet and dedicated coil, multiplanar, multiecho imaging of the br ain was performed pre and postcontrast administration. IV administration of 7.2 mL of Gadavist contr ast was uneventful. Thin cut T1 post contrast imaging was performed. Multiplanar reformats. FINDINGS: There are no foci of restricted diffusion to suggest acute infarct. No acute intracranial h emorrhage, midline shift or mass effect is present. Postoperative findings within the left parietal l obe are noted. The appearance of the operative bed is unchanged. Adjacent signal abnormality is uncha nged. There is no abnormal enhancement to suggest tumor recurrence. No intracranial mass or pathologi c enhancement is noted. Ventricular system is stable. Basilar cisterns are patent. There are no extra -axial collections. Flow-voids for the major intracranial vessels are present. Small amount of fluid within the bilateral mastoid air cells is unchanged. The appearance of the brain is unchanged. White matter T2 hyperintense foci suggest small vessel disease. IMPRESSION: 1. No acute intracranial findings. 2. Stable postoperative findings within the left parietal lobe. No evidence for tumor recurrence. ACT 112: Negative or not required by law. Electronically signed by: Mason Cavazos M.D. 11/16/2019 7:29 AM
[2019-11-16 08:02] LABS: Albumin Globulin Ratio 0.9 (0.9-2); BUN Creatinine Ratio 15.8 (10-20); Bilirubin,Total 0.4 mg/dl (0.2-1); Calcium 8.6 mg/dl (8.5-10.1); Creatinine Clr Calc Pharmacy 73.7 ml/min; Est GFR (African American) 101.6; Est GFR (Non-African American) 87.7; Globulin 3.5 gm/dl (2.5-4.0); Magnesium 2.2 mg/dl (1.8-2.4); Potassium 3.8 mmol/L (3.5-5.1); Total Protein 6.5 gm/dl (6.4-8.2)
--- NOTE | 2019-11-16 08:10 | Electroencephalogram ---
EEG Procedure Note Date of Service November 16, 2019 Start / End Times Start Time: 6:22 AM End Time: 6:42 AM Referring Physician Jaime Miller MD History History of metastatic brain lesion, paresthesias, evaluate for seizures Home Medication List Home Medications Medication Instructions Recorded Confirmed Type calcium carbonate-vitamin D3 2 tab PO QPM 05/06/18 11/15/19 History [Calcium 500 With D] cholecalciferol (vitamin D3) 1,000 unit PO QPM 05/06/18 11/15/19 History [Vitamin D3] crizotinib 250 mg PO BID 05/06/18 11/15/19 History multivitamin 1 tab PO PM 05/06/18 11/15/19 History ondansetron HCl [Zofran] 4 mg PO BID 05/06/18 11/15/19 History Gaviscon 1 tab PO DIRECTED PRN 03/29/19 11/15/19 History acetaminophen 325 mg PO Q6H PRN 03/29/19 11/15/19 History docusate sodium [Stool Softener] 100 mg PO HS PRN 03/29/19 11/15/19 History ibuprofen 200 mg PO Q6H PRN 03/29/19 11/15/19 History echinacea 0 mg PO DAILY 11/15/19 11/15/19 History zinc 50 mg PO DAILY 11/15/19 11/15/19 History Inpatient Medication List Gadobutrol (Gadavist 65ml) 7.2 ml IV ONCE PRN PRN Reason: Interaction Checking Stop: 11/20/19 03:17 Last Admin: 11/16/19 02:49 Dose: 7.2 ml Documented by: [id number] Ioversol (Optiray 320 125ml) 125 ml IV ONCE PRN PRN Reason: Interaction Checking Stop: 11/20/19 01:54 Last Admin: 11/16/19 01:56 Dose: 119 ml Documented by: [id number] Description This is a 21 electrode EEG with a single channel dedicated to limited EKG. The electrodes were placed in accordance with the International 10-20 system. There is a posterior dominant rhythm of 10 Hz which is symmetrically distributed and attenuates with eye opening. There is a normal anterior to posterior organization. Photic stimulation is unremarkable. Hyperventilation is not performed. There is admixed generalized polymorphic theta activity throughout the study. There is intermittent left temporal 4.5 Hz slowing and occasional sharps. Occasional vertex waves are observed as well. Interpretation This is an abnormal awake/drowsy EEG with evidence of focal slowing and occasional sharps localizing to the left temporal region. This finding suggests focal cerebral dysfunction and potential for focal onset seizure activity. Further clinical correlation needed. [facility] EEG Procedure Codes Indication for Procedure (1) Left parietal lobe lesion: (2) Numbness and tingling: (3) Seizure-like activity: Neurology Neurology: 48337 EEG include record awake & drowsy
--- NOTE | 2019-11-16 09:56 | Neurology Consultation ---
Date of Consultation November 16, 2019 Assessment & Plan (1) Seizure-like activity: (2) Stroke-like symptoms: This patient has been experiencing both persistent and episodic neurological symptoms localizing to the left cerebral hemisphere. She has a history of craniotomy in 2014 for treatment of a lung cancer metastasis, followed by radiation treatments. Her symptoms could be consistent with either recurrent TIA or focal/partial seizures. She does have considerable postoperative change affecting the left parietal lobe and associated slowing and occasional sharps on this morning's EEG which provides some supportive evidence for focal seizures. Her CT angiography of the head and neck are unremarkable. Recurrent cardioembolic TIA may not be completely excluded. No history of atrial fibrillation, however. Patient should have a transthoracic echocardiogram with bubble study completed. Consider 30-day cardiac event monitor. Would recommend treatment with an anticonvulsant. Patient reports history of intolerance to Keppra. Would start with Lamictal 25 mg/day for the next 2 weeks then plan to increase to 50 mg/day for weeks 3 and 4. Typical therapeutic dose typically 200-400mg/day. Dosage increases will be made depending on tolerability going forward. Patient should follow-up with me in the outpatient clinic (or as a telehealth visit) in the next 3 to 4 weeks. Would also recommend adding daily low-dose aspirin to patient's medication regimen if there is no specific medical contraindication. There is no evidence on hemorrhage on her recently completed neuroimaging. 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 Treatment has included craniotomy/resection and XRT. She has a known paravertebral lesion at C7 as well. The patient admits that the above symptoms have been fairly persistent since her brain surgery in 2014 that was done with Dr. Gonzalez. She recalls treatment with Keppra at that time for seizure prevention but indicates she did not tolerate this medication very well and it was eventually discontinued. She denies a history of generalized convulsive episodes. However, she does report experiencing episodic numbness, tingling, and weakness to the right side with associated speech changes occurring multiple times over the past year, perhaps 5 times, with greater intensity than her baseline. Currently, she presents to the hospital after an episode of numbness affecting the face and hands with associated weakness, primarily the right side, occurring with associated confusion and word finding difficulty lasting about 30 minutes and resolving. She indicates that the symptoms were of abrupt onset, all occurring more or less together. She denies experiencing any associated headache or impairment of awareness or consciousness. The patient had presented to the emergency department in April 2018 with a very similar episode characterized by right-sided numbness, associated weakness, and confusion. A brain MRI completed today is negative for acute or subacute stroke. There is chronic postoperative change affecting the left parietal lobe. Imaging described in further detail below. An EEG completed this morning reveals left temporal slowing and sharps. CT angiography of the head and neck are unremarkable. Allergies Allergy/AdvReac Type Severity Reaction Status Date / Time No Known Allergies Allergy Verified 11/15/19 23:27 Home Medications Home Medications Medication Instructions Recorded Confirmed Type calcium carbonate-vitamin D3 2 tab PO QPM 05/06/18 11/15/19 History [Calcium 500 With D] cholecalciferol (vitamin D3) 1,000 unit PO QPM 05/06/18 11/15/19 History [Vitamin D3] crizotinib 250 mg PO BID 05/06/18 11/15/19 History multivitamin 1 tab PO PM 05/06/18 11/15/19 History ondansetron HCl [Zofran] 4 mg PO BID 05/06/18 11/15/19 History Gaviscon 1 tab PO DIRECTED PRN 03/29/19 11/15/19 History acetaminophen 325 mg PO Q6H PRN 03/29/19 11/15/19 History docusate sodium [Stool Softener] 100 mg PO HS PRN 03/29/19 11/15/19 History ibuprofen 200 mg PO Q6H PRN 03/29/19 11/15/19 History echinacea 0 mg PO DAILY 11/15/19 11/15/19 History zinc 50 mg PO DAILY 11/15/19 11/15/19 History Patient History Medical History Depression NO MEDS Heartburn Left parietal lobe lesion (Resolved 07/26/14) "Status post abnormal MRI Status post craniotomy 07/26/2014 Status post completion of radiation therapy to the whole brain 09/03/2014 received 3750 cGy" Migraine OCCASIONAL Non-small cell carcinoma of left lung, stage 3 (Acute) FOLLOWS [facility]. DR. GRAVES- CHEMO COMPLETED- NO PORTS -ON MED Surgical History History of cholecystectomy History of colonoscopy History of craniotomy JUN 2014 - [facility] DR. GONZALEZ History of lobectomy of lung LLL WITH LYMPH NODE REMOVAL Hx of cataract extraction BILAT Hx of eye surgery LEFT S/P hemorrhoidectomy Family History Sister Colon cancer Brother Diabetes Social History Preferred Language: Kosovan Communication Ability: Effective Pressroom Supervisor Required: No Beliefs That Will Affect Care: None Current Living Situation: Spouse Feels Safe at Home: Yes Smoking Status: Never smoker Second Hand Exposure: Yes ( SMOKES OUTSIDE) ; Hx Alcohol Use: No Hx Substance Use: No Review of Systems Constitutional: no fever and no chills Eyes: Chronic blurry vision to the left eye, history of retinal detachment Ear, Nose, Mouth, Throat: no tinnitus and no hearing loss Respiratory: no cough and no dyspnea Cardiovascular: no chest pain and no palpitations Gastrointestinal: no nausea and no vomiting Genitourinary: no urinary incontinence Musculoskeletal: no myalgia Integumentary: no rash and no lesions Neurologic: as per Subjective / HPI, + localized weakness, + paresthesia and + confusion; no headache(s) Psychiatric: no depression and no anxiety Hematologic / Lymphatic: no easy bleeding and no easy bruising Exam (Neuro) Constitutional: well developed and well nourished; no acute distress Eyes: normal visual menard by confrontation, PERRL, normal accommodation and EOM intact bilaterally; no fundoscopic abnormality, no nystagmus and no papilledema Cardiovascular: Vessels: normal carotid upstroke; no carotid bruit Neurologic: Oriented to:: Person, Place and Time Memory: Short Term Intact and Remote Intact Attention: Span Intact and Concentration Intact Language: negative Naming Objects (Patient exhibits mild difficulty with object naming) and Repeating Phrases (Patient exhibits mild difficulty with phrase repetition.) Speech Fluency: Dysfluency; negative Dysarthria Fund of Knowledge: Current Events, Past History and Vocabulary Cranial Nerves: Normal II (Visual menard full to confrontation, visual acuity normal), III, IV, (Pupils equal round reactive to light and accommodation, eye movements normal), V (Facial sensation intact), VII (There is no facial droop or weakness), VIII (Hearing intact), IX, X (Palate elevates to midline), XI (Shoulder shrug intact) and XII (Tongue protrudes to midline) Motor Strength: Normal Lower Extremities and Normal Upper Extremities; negative Pronator Drift Motor Tone: Normal Lower Extremities and Normal Upper Extremities Muscle Bulk/Involuntary Movements: No Involuntary Movements; negative Muscle Atrophy Sensation: Light Touch Intact, Pain/Temperature Intact, Vibration Intact and Proprioception Intac t Coordination: Normal, Dysdiadochokinesia Laterality: Right, Finger-Nose Abnormal (There is mild dysmetria with [id number] on the right and mild impairment of facility of fine finger movements for the right hand.) Laterality: Right and Heel-Soriano Abnormal (Mild dysmetria with [id number] on the right as well.) Laterality: Right Deep Tendon Reflexes: Rt Triceps: 2+, Lt Triceps: 2+, Rt Biceps: 2+, Lt Biceps: 2+, Rt Brachioradialis: 2+, Lt Brachioradialis: 2+, Rt Patellar: 2+, Lt Patellar: 2+, Rt Ankle: 2+ and Lt Ankle: 2+ Special Tests: negative Babinski Present Details: Gait not tested due to safety concerns in the context of patient's current medical condition. As described above, patient speech is slow and hesitant and exhibits mild disfluency. Language comprehension intact. She has mild difficulty with object naming. Processing speed also slow. Results & Data ([facility]) Vital Signs (Past 12 Hours) Vital Signs Temp Pulse Pulse Pulse Resp BP BP 11/16/19 07:29 36.5 C 60 18 95/60 L 11/16/19 03:41 36.5 C 66 20 133/84 11/16/19 00:54 66 18 156/71 H 11/15/19 22:51 67 18 11/15/19 22:49 65 17 146/63 H 11/15/19 22:20 65 17 11/15/19 22:10 71 16 11/15/19 22:01 72 16 127/65 11/15/19 22:00 69 21 11/15/19 21:50 73 18 11/15/19 21:46 69 22 11/15/19 21:30 65 18 136/72 11/15/19 21:21 67 16 11/15/19 21:18 72 15 124/87 Pulse Ox 11/16/19 07:29 96 11/16/19 03:41 98 11/16/19 00:54 97 11/15/19 22:51 96 11/15/19 22:49 96 11/15/19 22:20 96 11/15/19 22:10 97 11/15/19 22:01 11/15/19 22:00 98 11/15/19 21:50 98 11/15/19 21:46 97 11/15/19 21:30 96 11/15/19 21:21 95 11/15/19 21:18 95 Laboratory Results WBC 3.71, hemoglobin 13.5, hematocrit 40.2, platelet count 182, sodium 139, potassium 3.8, BUN 12, creatinine 0.73, glucose 80, calcium 8.6, magnesium 2.2, AST 39, ALT [address] of the head completed November 15, 2019 reveals chronic postoperative changes, left frontoparietal region with associated encephalomalacia. No hemorrhage or acute process. I reviewed the images as well as the radiologist interpretation of this test. MRI of the brain completed November 16, 2019- for acute or subacute stroke. No acute findings. No hemorrhage. Again noted stable chronic postoperative findings within the left parietal region. No evidence of tumor recurrence. There is moderate diffuse chronic small vessel ischemic change. There is mild generalized atrophy. I reviewed the images as well as the radiologist interpretation of this test. CT angiography of the head and neck are unremarkable, no evidence of stenosis, occlusion, aneurysm, or dissection. There is an unchanged osteoblastic metastatic focus along the left side of the C7 vertebral body. I reviewed the images as well as the radiologist interpretation of this test. An electrocardiogram completed November 15, 2019 reveals a normal sinus rhythm. Electroencephalogram completed this morning reveals left temporal slowing and sharps suggestive of focal cerebral dysfunction and potential for focal onset seizure activity. PG Care Time/CCT Total # of Minutes Spent Total Time Spent with Patient: Total time spent is greater than 50% in coordination of care (as documented) at patient's floor/unit and/or counseling patient: Coding Level of Care Code 32120 Inpt Consult Level 5 Diagnoses Seizure-like activity R56.9 Stroke-like symptoms R29.90
[2019-11-16] MEDS ORDERED: lamoTRIgine 25 MG TAB PO SCH (10:00)
--- NOTE | 2019-11-16 14:37 | XCELERA ---
[id number]
--- NOTE | 2019-11-16 16:05 | Electrocardiogram Report ---
Test Reason : Blood Pressure : / mmHG Vent. Rate : 070 BPM Atrial Rate : 070 BPM P-R Int : 142 ms QRS Dur : 088 ms QT Int : 380 ms P-R-T Axes : 087 061 062 degrees QTc Int : 410 ms Normal sinus rhythm Normal ECG When compared with ECG of 09-NOV-2016 18:19, No significant change was found Confirmed by Yahir Whitehead ([id number]) on 11/16/2019 4:05:31 PM Referred By: REFERRED SELF Confirmed By:Saturnino Whitehead
--- NOTE | 2019-11-16 17:19 | Discharge Summary ---
Date of Service November 16, 2019 Admission HPI Per Admitting Provider Carmelita Fernandez is a 64y/o F w/ PMH significant for primary lung cancer with metastasis to brain s/p resection; presented to the ED following an episode of numbness and tingling in her both her hands and on her face. This has happened twice over the last two days, with her feeling increased fatigue, decreased memory of the events, and trouble finding words, was witnessed by who told her to go to bed, and when she woke up several hours later she said she felt better; however, after this recurred Wednesday night they were uncomfortable with this change. She does have some baseline numbness and tingling in her right arm and leg that as been present since the resection of the metastatic tumor in 2014, and has since that time had difficulty with word finding; however, she has never previously had the numbness or tingling in her face, and the difficulty with word finding was more significant according to her spouse. has noticed that since her surgery in 2014, she will sporadically get suddenly quiet for periods of 15-30 seconds, and then for several minutes afterward she will be more confused before returning to her normal self. No recent falls, no changes in strength or function of arms/legs. No facial droop. No seizure-like activity. Admission Exam Per Admitting Provider Constitutional: WD/WN, vitals as above Eyes: PERRL, conjunctivae normal, anicteric sclerae ENMT: external ear and nose normal, oropharynx normal Neck: normal visual inspection Respiratory: normal respiratory effort, lungs clear to auscultation Cardiovascular: Rate/Rhythm: regular rate and regular rhythm Heart Sounds: normal S1 and normal S2; no gallop, no murmur and no cardiac rub Vessels: no JVD Extremities: no edema Gastrointestinal (Abdomen): normal bowel sounds, soft, nontender, no hepatosplenomegaly Musculoskeletal: no cyanosis or clubbing, extremities motor strength 5/5 Skin: no rashes, warm and dry Neurologic: patellar DTR's 2+ bilat, sensation intact CN's II-XI intact bilaterally and moves all extremities Psychiatric: A+Ox3, euthymic affect Lymphatic: no cervical or axillary lymphadenopathy Principal Diagnosis Strokelike symptoms, seizure-like activity Discharge Exam General Appearance: Awake, alert & oriented, comfortable in general, NAD. Ears: Is wearing bilateral hearing aids. CV: +S1S2 RRR, no murmur. Pulm: Clear to auscultation throughout. Abdomen: +BS, soft, non-tender, non-distended. Extremities: No pedal edema or calf tenderness. Neuro: CN II through XII are grossly intact. Pleasantly conversational with no slurred speech, though she does have occasional slight pauses between words. Strength 5/5 in all extremities. Distal sensation in bilateral upper and lower extremities is equal and intact. Discharge Data Allergies Allergy/AdvReac Type Severity Reaction Status Date / Time No Known Allergies Allergy Verified 11/15/19 23:27 Consultations Neurology consult assessment and plan on November 16, 2019 (1) Seizure-like activity: (2) Stroke-like symptoms: - This patient has been experiencing both persistent and episodic neurological symptoms localizing to the left cerebral hemisphere. She has a history of craniotomy in 2014 for treatment of a lung cancer metastasis, followed by radiation treatments. Her symptoms could be consistent with either recurrent TIA or focal/partial seizures. She does have considerable postoperative change affecting the left parietal lobe and associated slowing and occasional sharps on this morning's EEG which provides some supportive evidence for focal seizures. Her CT angiography of the head and neck are unremarkable. Recurrent cardioembolic TIA may not be completely excluded. No history of atrial fibrillation, however. - Patient should have a transthoracic echocardiogram with bubble study completed. - Consider 30-day cardiac event monitor. - Would recommend treatment with an anticonvulsant. Patient reports history of intolerance to Keppra. Would start with Lamictal 25 mg/day for the next 2 weeks then plan to increase to 50 mg/day for weeks 3 and 4. Typical therapeutic dose typically 200-400mg/day. Dosage increases will be made depending on tolerability going forward. Patient should follow-up with me in the outpatient clinic (or as a telehealth visit) in the next 3 to 4 weeks. - Would also recommend adding daily low-dose aspirin to patient's medication regimen if there is no specific medical contraindication. There is no evidence on hemorrhage on her recently completed neuroimaging. Ordered Studies EEG performed on November 16, 2019 Interpretation This is an abnormal awake/drowsy EEG with evidence of focal slowing and occasional sharps localizing to the left temporal region. This finding suggests focal cerebral dysfunction and potential for focal onset seizure activity. Further clinical correlation needed. Transthoracic echocardiogram performed on November 16, 2019 (see full report). EF 60-65%. No cardiac source of emboli noted. LVSF is normal. Mild aortic regurgitation. CT scan of the brain without IV contrast on November 15, 2019 IMPRESSION: Chronic/postoperative changes as above with no hemorrhage, mass effect, or evidence of acute territorial ischemia by CT criteria. MRI of the brain with and without IV contrast on November 16, 2019 IMPRESSION: 1. No acute intracranial findings. 2. Stable postoperative findings within the left parietal lobe. No evidence for tumor recurrence. CTA of the head and neck on November 16, 2019 IMPRESSION: 1. No significant stenosis, occlusion, or aneurysm within the craig of [place]. 2. No significant stenosis, occlusion, or dissection identified within the carotid or vertebral arteries. 3. No change in the osteoblastic metastatic focus along the left side of the C7 vertebral body. Hospital Course (1) Stroke-like symptoms: 64-year-old female was admitted on 16 Nov 2019 for acute stroke-like symptoms. Stroke-like symptoms, seizure-like activity: Noted episodes of bilateral hand numbness/tingling, similar facial symptoms, and word finding difficulties. As of this morning, all of these have resolved. CT head and brain MRI shows chronic postoperative changes without acute findings. Head and neck CTA without evidence of stenosis. No emboli seen on TTE (see full report). EKG NSR. Passed bedside dysphagia screen. See EEG report. - Seen by neurology this morning. Notes localizing left cerebellar symptoms. Differential includes recurrent TIA or focal/partial seizures. Patient has a reported history of Keppra intolerance. Recommended starting on Lamictal 25 mg a day for two weeks with a plan to increase to 50 mg a day on weeks 34. Typical therapeutic dose around 200-400 mg a day. Dosage increases based on tolerability. - Also recommended daily low-dose aspirin. Started on hospital discharge. - Recommended a 30-day cardiac event monitor. Working with case management to arrange. - Follow-up with neurology (Dr. Rubio) in 3-4 weeks. - We discussed with the patient that, based on [place] law, she should not be driving until she is seizure-free for 6 months. She will need to follow-up with neurology to be cleared to drive. Patient expressed understanding of this. 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 CTA noted no change in osteoblastic focus of C7 vertebral body. Follows with Dr. Keating. Currently on crizotinib. Leukocytosis: WBC 3.7. Can be tracked by her PCP and/or oncologist. Ongoing medical issues: - HLD: Reportedly not on medication for this. - GERD: Reportedly not on medication for this. No current symptoms. - Depression, anxiety: Reportedly not on medication for this. - IBS: Reportedly not on medication for this. - Bilateral hearing loss: Wears hearing aids. Code status: Full code. (2) Seizure-like activity: (3) Non-small cell carcinoma of left lung, stage 3: (4) Leukocytosis: Total Time Total Time Spent Total Time Spent (In Minutes): > 30 min Discharge Plan Discharge Items Patient Disposition: Home - Self-Care Reason For Visit: STROKE-LIKE SYMPTOMS Discharge Diagnosis: Strokelike symptoms, seizure-like activity. Activity: Per Instructions section Non-emergency contact: Primary Care Provider and Neurologist Call non-emergency contact if: you have any medication questions Follow-up/Referrals: Martínez Edgar MD [Primary Care Provider] - Diet: Regular Addtl Attending Provider Instructions: You were admitted to the hospital earlier today, November 16, 2019 for acute stroke- like symptoms. While in the hospital, you underwent multiple blood tests and imaging studies. Fortunately, none of these showed any clear evidence of infection or other acute issue causing her symptoms. However, you did undergo an EEG that showed a potential of you having seizure-like activity. You were seen by our neurologist, Dr. Rubio. He recommends the following: - Recommended that you start on an anti-seizure medication called Lamictal. You would start at a 25 mg a day dose for the first 2 weeks. Then it would increase to 50 mg a day and weeks 3 and 4. - Recommended that you start taking a baby aspirin every day. - Recommended that you have a 30-day heart monitor. We will try to have one sent to your home. If any questions about this, you can ask either neurology or your primary care provider. - Because of the seizure-like activity, and [place] law, unfortunately you should not be driving at all until you are seizure-free for 6 months or when you are cleared by a neurologist. Therefore it will be important to follow-up with neurology during this time. - Dr. Rubio recommends you follow up in his [facility] neurology office in 3- 4 weeks. Please call [phone] to schedule an appointment. Please follow-up with both neurology and her primary care provider as discussed above. Please return to the emergency department if you develop any new neurological concerns (including but not limited to) return of any numbness or tingling, difficulty with speech, visual changes, extremity weakness, or any other emergent concerns. Pending Studies at Discharge: No Stand-Alone Forms: My [facility] Medications and DC Order Prescriptions: New lamotrigine [Lamictal] 25 mg Tablet See Rx Instructions .ROUTE .COMPLEX Qty: 42 RF: 0 aspirin [Aspir-81] 81 mg tablet,delayed release (DR/EC) 81 mg PO DAILY Qty: 30 RF: 0 Continued multivitamin Tablet 1 tab PO PM RF: 0 ondansetron HCl [Zofran] 4 mg Tablet 4 mg PO BID RF: 0 cholecalciferol (vitamin D3) [Vitamin D3] 1,000 unit Capsule 1,000 unit PO QPM RF: 0 calcium carbonate-vitamin D3 [Calcium 500 With D] 500 mg(1,250mg) -400 unit Tablet 2 tab PO QPM RF: 0 crizotinib 250 mg capsule 250 mg PO BID RF: 0 docusate sodium [Stool Softener] 100 mg Capsule 100 mg PO HS PRN (Reason: Constipation) RF: 0 acetaminophen 325 mg Tablet 325 mg PO Q6H PRN (Reason: Pain) RF: 0 ibuprofen 200 mg Tablet 200 mg PO Q6H PRN (Reason: Pain) RF: 0 Gaviscon 80-14.2 mg Tablet,Chewable 1 tab PO DIRECTED PRN (Reason: Heartburn) RF: 0 echinacea 380 mg Capsule 0 mg PO DAILY RF: 0 zinc 50 mg Tablet 50 mg PO DAILY RF: 0 Discharge Orders: Discharge Order (Routine); Ordered 11/16/19 Ordered By: Rony Roger Admission Data Admit Date/Time: 11/16/19 01:25 Attending Provider: Angélica Roche Admit Provider: Jaime Miller Primary Care Provider: Martínez Edgar Other Providers: Mauricio Keating V. ; Rufino Rubio ; Waldo Amanda Other Interventions: Discharge Summary Assessment (RN) Last Done: 11/16/19 17:28 DC Date/Time DO NOT enter until pt leaves facility: 11/16/19 18:55 Supervising Physician Co-Signing Physician Notes I personally examined the patient and verified all [place] points of history and exam, discussed case, and agree with decision making with Dr. Roger with the following additions/exceptions: Pt presented with bilat numbness and periods of confusion, found to have evidence of focal seizures on EEG which could account for her symptoms. Appreciate Neuro consult. TIUA/CVA workup completed. No new tumors or CVA on MRI brain. VSS NAD< AAOx3 RRR no mgr CTAB no wcr Abd BS soft NT ND Ext no edema Neuro- CN 2-12 intact, MAEW Skin no rashes Labs and Rads reviewed Case d/w Neuro 64 yo female with a h/o stage 4 lung CA with mets to brain and bone, s/p craniectomy, here with intermittent periods of confusiona nd bilat paresthesias, could be consistent with focal seizure. -resolved currently, started on low dose lamictal with plans to titrate up -close f/u with Neuro in near future is recommended -started ASA 81mg daily in case of TIA Stable for dc to home DMV form to be submitted to recommend no driving Resident Activity Tracking Resident Involvement: Resident Care Provided Care Provided: Adult Hospital Medicine
--- NOTE | 2019-11-16 23:07 | Billing Data ---
Date of Service November 16, 2019 Coding Level of Care Code 50679 Initial Inpt Care Lvl 3
[2019-11-17] MEDS ORDERED: ASPIRIN 81 MG ECTAB PO SCH (09:00)
--- NOTE | 2019-11-25 11:19 | Billing Data ---
Date of Service November 16, 2019 Coding Level of Care Code D/C Day Management >30 mins
== END 2019-11-16 18:55 | disposition home or self-care (01) | DRG 101 ==
LOC: ED 20:03 → SUATTDRO 11-16 01:25 → 2N 11-16 01:25